=== PATIENT | female | born 1940 | race Caucasian/White ===

== ENCOUNTER 2025-04-01 11:21 | Outpatient (AMB) | payer MEDICARE, SELFPAY ==
--- NOTE | 2025-04-01 11:23 | A.PHYSOV_ITS ---
Vital Signs 04/01/25 11:27 Height 5 ft 3 in Weight 145 lb BMI 25.7 Pulse 80 Temp 97.6 F Intake Visit Reasons: Right Lumbar Transforaminal Epidural Inj L2 and L4 Intake Note: Patient is a 84 year male in office today for a Right L2 and L4 Transforaminal Epidural Injection. Tunnel Miner Required: No Allergies bee pollen (bees) Allergy (Unknown, Verified 04/01/25 11:24) Unknown [facility] Medical History (Updated 04/01/25 @ 11:41 by Nakul Thomas DO) Lumbar radiculitis Surgical History (Updated 04/01/25 @ 11:30 by Marycruz Oviedo MA) History of partial hysterectomy History of back surgery (Unknown) Social History (Updated 04/01/25 @ 11:27 by Marycruz Oviedo MA) Household Members Other:: Alcohol intake: current Alcohol intake frequency: does not drink Patient Tobacco Use Status: Former Tobacco user Use of substances other than those prescribed or required for medical reasons: No Current occupational status: retired Physical Exam Vital Signs: Last Vital Signs Temp 97.6 F 04/01/25 11:27 Pulse 80 04/01/25 11:27 BMI result Body Mass Index 25.7 Office Procedures Procedure Details: Procedure performed: Right L2 and L4 transforaminal epidural steroid injection Preop diagnosis: Lumbar radiculitis Postop diagnosis: The same Anesthesia: Local After informed consent was obtained, patient was placed on the procedure table in a prone position. Skin over lumbosacral area was prepped and draped in usual sterile manner. Right L2 pedicle was visualized utilizing fluoroscopy. 3.5 inch 22 gauge spinal needle was introduced percutaneously and advanced towards the pedicle at about 6 o'clock position. Once level of neural foramina was reached, needle placement was verified utilizing 3 cc of Omnipaque contrast solution. Excellent flow through the neural foramina and epidural spread was identified without evidence of vascular uptake. Total volume of 6 cc containing 2 cc of 1% lidocaine, 40 mg of triamcinolone and normal saline solution were injected after negative aspiration for blood and cerebrospinal fluid. Identical procedure was repeated at right L4 level. Radiation exposure was documented in the chart. Lumbar transforaminal Epidural Steroid Inj- use with FL Gd: 29801 - Single and 27242 - Each Additional Procedure code (CPT) selection complete Office Meds Kenalog 40 mg/mL suspension for injection Performing Provider: Nakul Thomas DO Performing Location: [facility] Administered by: Nakul Thomas DO on 04/01/25 11:43 Dose Route Admin Location Dispensed Lot Number Expiration Date [facility] [place] Special Education Teacher 80 mg epidural 2 mL [id number] [employer] Total Dispensed Waste 2 mL 0 % lidocaine (PF) 10 mg/mL (1 %) injection solution Performing Provider: Nakul Thomas DO Performing Location: [facility] Administered by: Nakul Thomas DO on 04/01/25 11:43 Dose Route Admin Location Dispensed Lot Number Expiration Date [facility] [place] Room Special Education Teacher 50 mg epidural 5 mL [id number] [employer] Total Dispensed Waste 5 mL 0 % Omnipaque 300 300 mg iodine/mL intravenous solution Performing Provider: Nakul Thomas DO Per[facility] Administered by: Nakul Thomas DO on 04/01/25 11:43 Dose Route Admin Location Dispensed Lot Number Expiration Date [facility] [place] Room Special Education Teacher 3 mL epidural 10 mL [id number] [facility] Total Dispensed Waste 10 mL 70 % Assessment & Plan Assessment & Plan (1) Lumbar radiculitis: Code(s): M54.16 - Radiculopathy, lumbar region Category: Medical Plan: Lumbar epidural injection was performed Plan Lumbar epidural injection was performed Orders: Orders AMB Lumbar transforaminal Epidural Steroid Injection Today M54.16 - Radiculopathy, lumbar region FL Gd Lumbar Transforaminal In Today M54.16 - Radiculopathy, lumbar region Coding Level of Care Code Procedure Only Diagnoses Lumbar radiculitis M54.16 CPT Codes Lumbar transforaminal Epidural Steroid I - CPT TRANSFORM: 38089 - Single ([id number]) Lumbar transforaminal Epidural Steroid I - CPT TRANSFORM: 62859 - Single ([id number])
[2025-04-01 11:27] VITALS: PULSE 80; TEMP 36.4; BMI 25.7
--- OUTSIDE RECORDS SUMMARY | 2025-04-01 12:12 | XMS_ITS | Clinical Summary ---
Author Organization [facility] Address [address] [place] [address] Care Team Providers Care Information Systems Security Manager Name Role Phone Nidia Mckeon MD Primary Care Provider [phone] Allergies No known active allergies Medications No known medications Active Problems No known active problems Social History Tobacco Use Types Packs/Day Years Used Date Smoking Tobacco: Former Cigarettes Smokeless Tobacco: Never Tobacco Cessation:Counseling Given: Not Answered Alcohol Use Standard Drinks/Week Comments Never 0 (1 standard drink = 0.6 oz pur e alcohol) Sex and Gender Information Value Date Recorded Sex Assigned at Female 11/30/2021 11:23 AM EDT Gender Identity Not on file Sexual Orientation Not on file Job Start Date Occupation Industry Not on file Not on file Not on file Last Filed Vital Signs Vital Sign Reading Time Taken Comments Blood Pressure 136/56 06/02/2023 1:04 PM EST Pulse 60 06/02/2023 1:04 PM EST Temperature 37 C (98.6 F) 06/02/2023 1:04 PM EST Respiratory Rate - - Oxygen Saturation 100% 06/02/2023 1:04 PM EST Inhaled Oxygen Concentration - - Weight 60.8 kg (134 lb) 06/02/2023 1:04 PM EST Height - - Body Mass Index - - Plan of Treatment Health Maintenance Due Date Last Done Comments Depression Screening 1953 Preventative Health Evaluation 09/20/1959 DTap / Tdap / Td (1 - Tdap) 1960 Fall Risk Assessment 2006 Osteoporosis Screening (DEXA Scan) 2006 RSV Adult > 60+ Yrs or (1 - 1-dose 75+ series) 2016 Pneumococcal Vaccine (2 of 2 - PPSV23 or PCV20) 02/19/2019 02/19/2018 COVID-19 Vaccine (4 - 2024-2 6 season) 2025 02/22/2021, 07/04/2020, 06/13/2020 Influenza Vaccine (#1) 2025 0, 01/22/2019, 02/17/2018 Shingrix-Zoster Vaccine Completed 04/12/20 19, 01/22/2019 Hepatitis B Vaccines Aged Out No long er eligible based on patient's age to complete this topic RSV Ped < 20 months Aged Out No longe r eligible based on patient's age to complete this topic Care Teams Information Systems Security Manager Relationship Specialty Start Date End Date Nidia Mckeon MD [address] [place] [address] PCP - General Internal Medicine 04/02/23
--- OUTSIDE RECORDS SUMMARY | 2025-04-01 12:13 | XMS_ITS | Encounter Summary ---
Author Organization [facility] Address [address] [place] [address] Care Team Providers Care Humanities Professor Name Role Phone Nidia Mckeon MD Primary Care Provider [phone] Encounter Details Date Type Department Care Team (Late st Contact Info) Description 02/09/2025 Results Follow-Up [facility] [address] [facility] [address] [place] [address] Sally Johnston NP [address] [place] [address] [place] [address] Social History Tobacco Use Types Packs/Day Years Used Date Smoking Tobacco: Former Smokeless Tobacco: Never Alcohol Use Standard Drinks/Week Comments Not Currently 0 (1 standard drink = 0.6 oz pur e alcohol) Housing Instability Answer Date Recorde d Are you worried that in the next 2 months you may not have stable housing? No 01/07/2025 Food Access & Nutrition Answer Date Rec orded Do you have access to a vari ety of food including fruits and vegetables? No 01/07/2025 Access to Healthcare Answer Date Record ed Within the last 3 months, ho w many times did you visit the emergency department for your medical care? 0 01/07/2025 Health Literacy Answer Date Recorded How often do you need to hav e someone help you when you read instructions, pamphlets, or other written material from your doctor or pharmacy? Never 01/07/2025 Caregiver: How often do you need to have someone help you when you read instructions, pamphlets, or other written material from your doctor or pharmacy? Not on file 01/07/2025 Financial Risk Answer Date Recorded How hard is it for you to pa y for the very basics like food, housing, medical care, and air conditioning / heating? Not very hard 01/07/2025 Transportation Answer Date Recorded Has the lack of transportati on kept you from meetings, work, or from getting things needed for daily living? Not on file 01/07/2025 Has the lack of transportati on kept you from medical appointments or from getting medications? No 01/07/2025 Social Isolation Answer Date Recorded How often do you feel lonely or isolated from th ose around you? Never 01/07/2025 Food Risk Answer Date Recorded Within the past 12 months we worried whether our food would run out before we got money to buy more. Never true 01/07/2025 Within the past 12 months th e food we bought just didn't last and we didn't have money to get more. Never true 01/07/2025 Dependent Care Answer Date Recorded Do you need help finding or paying for care for your loved ones. For example, children's minister or elderly care for an older adult? No 01/07/2025 Education Answer Date Recorded Do you think completing more education or training, like finishing a GED, going to college, or learning a trade, would be helpful for you? No 01/07/2025 Employment and Income Answer Date Recor ded During the last four weeks, have you been actively looking for work? No 01/07/2025 Living Situation Answer Date Recorded What is your living situation? Unrecognized valu e 01/07/2025 Interpersonal Safety Answer Date Record ed Physical Abuse Unrecognized value 09/13/2024 Verbal Abuse Unrecognized value 09/13/2024 Comments No Sex and Gender Information Value Date Recorded Sex Assigned at Female 08/20/2024 8:33 AM EDT Legal Sex Female 2:16 PM EST Gender Identity Female 08/20/2024 8:33 AM EDT Sexual Orientation Straight 08/20/2024 8: 33 AM EDT documented as of this encounter Plan of Treatment Upcoming Encounters Date Type Department Care Team (Late st Contact Info) Description 04/27/2025 8:15 AM EST Office Visit Pulmonology - [place] [address] [place] [phone] Rocio Morrell MD [address] [place] [phone] 07/12/2025 8:45 AM EST Office Visit Adult [address] [phone] Nidia Mckeon MD [address] [place], [place] 01/10/2026 10:00 AM EDT Office Visit Adult [address] [phone] Nidia Mckeon MD [address] [place], [place] 03/07/2026 8:30 AM EDT Office Visit Urogynecology [address] [phone] Manasa Hagan MD [address] [place] [address] documented as of this encounter Visit Diagnoses Not on filedocumented in this encounter Additional Health Concerns Assessment Noted Time PHQ-9 Depression Total Score: 0 01/08/20 25 2:03 PM EDT A fall risk assessment has been complete d for the patient 01/07/2025 2:01 PM EDT documented as of this encounter Care Teams Humanities Professor Relationship Specialty Start Date End Date Nidia Mckeon MD [address] [place] [address] PCP - General 04/02/23 documented as of this encounter
--- OUTSIDE RECORDS SUMMARY | 2025-04-01 12:13 | XMS_ITS | Patient Health Record ---
Author Organization [facility] Address [address] [place] [address] Care Team Providers Care Hospital Scientist Name Role Phone Juanpablo Horowitz Unavailable [phone] Reason For Referral No Information Social History Social History Drugs/Alcohol: Social Info Question Answer Notes Drugs Have you used drugs other than those for medical reasons in the past 12 months? No Do NOT USE Social Info Question Answer Notes Alcohol: Frequency: pt admits to dr greta castillo and stated she could finish a whole bottle and it varies as to how she drinks her wine sometimes more and somestimes less Smoking: Year(s) pt smokes a pac k a day and is sort of ready to quit Tobacco Use: Social Info Question Answer Notes Tobacco use other than smoking: Are you an other tobacco user? No Plan Of Treatment No Information
--- OUTSIDE RECORDS SUMMARY | 2025-04-01 12:13 | XMS_ITS | Continuity of Care Document ---
Author Organization [facility] [address] [place] [address] Phone [phone] Care Team Providers Care Flavor Room Worker Name Role Phone Nidia Mckeon MD Care Team Information Chief Meteorologist + [phone] Problems Active Problems Provider Date Essential hypertension Familia Hernandez Onset: 12/28/2021 Hypothyroidism Azul Nolasco M.D. Ons et: 12/28/2021 Osteoporosis Azul Nolasco M.D. Ons et: 12/28/2021 Degeneration of lumbar inter vertebral disc Azul Nolasco M.D. Onset: 12/28/2021 Osteoarthritis of bilateral hip joints Azul Nolasco M.D. Onset: 12/28/2021 Depressive disorder Azul Nolasco M.D. Onset: 11/06/2023 Lumbar radiculopathy David Hernandez Onset: 11/08/2023 History of deep vein thrombosis Azul Wills M.D. Onset: 11/08/2023 Bilateral sacral insufficien cy fracture Azul Nolasco M.D. Onset: 11/08/2023 Closed fracture of pelvis Azul Nolasco M.D. Onset: 11/08/2023 Social History Type Date Description Comments Sex Female Sex Unknown Lives With Alone ETOH Use Occasionally consumes alcoho l Tobacco Use Start: Unknown End: Unknown Patient is a former smoker Allergies and adverse reactions Active Allergies Criticality Reaction Severity Comments Date Honey Bee Venom Unable to assess criticality 03/30/2025 Inactive Allergies No Known Drug Allergies 0 12/28/2021 Medications Active Medications SIG Qnty Indications Order ing Provider Date Atorvastatin Prdlizi32fw Tablets Take 1 Tablet By Mouth Every Day Delio Miller M.D. Levothyroxine Zdzqab11tww Tablets Take 1 Tablet By Mouth Every Day Except Skip Saturdays 90tabs Azul Nolasco M.D. Mkgboifsiv76kt Capsules DR Take 1 Capsule By Mouth Every Day Delio Miller M.D. Multivitamin Adults 50+Adlt 50+ Tablets 1 by mouth every day Azul Nolasco M.D. Losartan Ecslmgxtb61xc Tablets 1 by mouth every day Unknown Wdhktnksc70ur Tablets ER 24HR 1 by mouth every day Unknown Sertraline XYZ32xg Tablets 1 by mouth every day Unknown Tupgpvkycq349nr Capsules 1 capsule 3 times daily Unknown Vitamin V442giq (2000 Ut) Capsules 1 by mouth every day Unknown Ufmovjzzv8cb Capsules 1 every night at bedtime Unknown Estradiol0.1mg/GM Cream 2 times weekly Unknown Anoro Cnzdhnw13.5-25mcg/Act Aerosol Inahle 1 puff By Mouth Once Daily Unknown Vital Signs Date Vital Result Comment 03/30/2025 8:03am BP Systolic 120 mmHg BP Diastolic 68 mmHg Heart Rate 65 /min Height 63 inches 5'3 Weight 145.12 lb BMI (Body Mass Index) 25.7 kg/m2 Results Test Acquired Date Facility Test Result H/L Range N ote TSH Rfx on Abnormal to Free T4 03/30/2025 [facility] TSH Rfx on Abnormal to Free T4 2.140 uIU/mL 0.450-4.5 00 TSH Rfx on Abnormal to Free T4 10/21/2024 [facility] TSH Rfx on Abnormal to Free T4 0.534 uIU/mL 0.450-4.5 00 Basic Metabolic Panel (8) 10/21/2024 [facility] Glucose 90 mg/dL 70-99 BUN 19 mg/dL 8-27 Creatinine 0.78 mg/dL 0.57-1.00 eGFR 75 mL/min/1.7 3 >59 BUN/Creatinine Ratio 24 12- Sodium 139 mmol/L 134-144 Potassium 4.9 mmol/L 3.5-5.2 Chloride 102 mmol/L 96-106 Carbon Dioxide, Total 19 mmol/L Low 20-29 Calcium 9.5 mg/dL 8.7-10.3 Albumin 10/21/2024 [facility] Albumin 4.5 g/dL 3.7-4.7 Vitamin D, 25-Hydroxy 10/21/2024 [facility] Vitamin D, 25-Hydroxy 48.4 ng/mL 30.0-100. 0 1 TSH+Free T4 10/21/2024 [facility] TSH 0.534 uIU/mL 0.450-4.5 00 T4,Free(Direct) 1.34 ng/dL 0.82- 1.77 Comp. Metabolic Panel (14) 10/21/2024 [facility] Glucose 91 mg/dL 70-99 BUN 20 mg/dL 8-27 Creatinine 0.80 mg/dL 0.57-1.00 eGFR 73 mL/min/1.7 3 >59 BUN/Creatinine Ratio 25 12- Sodium 139 mmol/L 134-144 Potassium 4.9 mmol/L 3.5-5.2 Chloride 103 mmol/L 96-106 Carbon Dioxide, Total 20 mmol/L 20-29 Calcium 9.9 mg/dL 8.7-10.3 Protein, Total 6.9 g/dL 6.0-8.5 Globulin, Total 2.1 g/dL 1.5-4.5 Bilirubin, Total 0.4 mg/dL 0.0-1 .2 Alkaline Phosphatase 81 IU/L 44-121 Ast (Sgot) 19 IU/L 0-40 Alt (SGPT) 10 IU/L 0-32 PTH, Intact 10/21/2024 [facility] PTH, Intact 55 pg/mL 15-65 TSH Rfx on Abnormal to Free T4 04/21/2024 [facility] TSH Rfx on Abnormal to Free T4 3.030 uIU/mL 0.450-4.5 00 Basic Metabolic Panel (8) 04/21/2024 [facility] Glucose 91 mg/dL 70-99 BUN 12 mg/dL 8-27 Creatinine 0.92 mg/dL 0.57-1.00 eGFR 62 mL/min/1.7 3 >59 BUN/Creatinine Ratio 13 12-28 Sodium 139 mmol/L 134-144 Potassium 4.5 mmol/L 3.5-5.2 Chloride 102 mmol/L 96-106 Carbon Dioxide, Total 23 mmol/L 20-29 Calcium 9.6 mg/dL 8.7-10.3 Comp. Metabolic Panel (14) 11/06/2023 [facility] Glucose 89 mg/dL 70-99 BUN 15 mg/dL 8-27 Creatinine 0.74 mg/dL 0.57-1.00 eGFR 81 mL/min/1.7 3 >59 BUN/Creatinine Ratio 20 12-28 Sodium 140 mmol/L 134-144 Potassium 4.0 mmol/L 3.5-5.2 Chloride 101 mmol/L 96-106 Carbon Dioxide, Total 23 mmol/L 20-29 Calcium 9.8 mg/dL 8.7-10.3 Protein, Total 6.3 g/dL 6.0-8.5 Albumin 4.3 g/dL 3.7-4.7 Globulin, Total 2.0 g/dL 1.5-4.5 Bilirubin, Total 0.5 mg/dL 0.0-1 .2 Alkaline Phosphatase 58 IU/L 44-121 Ast (Sgot) 19 IU/L 0-40 Alt (SGPT) 14 IU/L 0-32 TSH+Free T4 11/06/2023 [facility] TSH 0.155 uIU/mL Low 0.450-4.5 00 T4,Free(Direct) 1.69 ng/dL 0.82- 1.77 Vitamin D, 25-Hydroxy 11/06/2023 [facility] Vitamin D, 25-Hydroxy 48.1 ng/mL 30.0-100. 0 2 PTH, Intact 11/06/2023 [facility] PTH, Intact 35 pg/mL 15-65 TSH With Reflex To FT4 09/26/2022 [facility] TSH With Reflex To FT4 1.73 uIU/mL (0.4-4.2) TSH With Reflex To FT4 12/28/2021 [facility] TSH With Reflex To FT4 1.18 uIU/mL (0.4-4.2) 1 Vitamin D deficiency has been defined by the [place] of [employer] and an Endocrine Society practice guideline as a level of serum 25-OH vitamin D less than 20 ng/mL (1,2). The Endocrine Society went on to further define vitamin D insufficiency as a level between 21 and 29 ng/mL (2). 1. IOM ([place] of [employer]). 2010. Dietary reference intakes for calcium and D. [place]: The National Academies Press. 2. Chong Gray, Caio BASSETT, et al. Evaluation, treatment, and prevention of vitamin D deficiency: an Endocrine Society clinical practice guideline. JCEM. 2010; 96(7):1911-30. 2 Vitamin D deficiency has been defined by the [place] of [employer] and an Endocrine Society practice guideline as a level of serum 25-OH vitamin D less than 20 ng/mL (1,2). The Endocrine Society went on to further define vitamin D insufficiency as a level between 21 and 29 ng/mL (2). 1. IOM ([place] of [employer]). 2010. Dietary reference intakes for calcium and D. [place]: The National Academies Press. 2. Chong Gray, Caio BASSETT, et al. Evaluation, treatment, and prevention of vitamin D deficiency: an Endocrine Society clinical practice guideline. JCEM. 2010; 96(7):1911-30. Procedures Date Code Description Status 04/21/2024 09579 Collection Of Venous Blood B y Venipuncture Completed 09/26/2022 39660 Collection Of Venous Blood B y Venipuncture Completed 12/28/2021 96680 Collection Of Venous Blood B y Venipuncture Completed Medical Devices Description No Information Available Encounters Type Date Location Provider Dx Diagnosis Office Visit 03/30/2025 8:15a Main Office Azul Nolasco M.D. M81.0 Age-related osteoporosis w/o current pathological fracture Z87.310 Personal history of (healed) osteoporosis fracture E03.9 Hypothyroidism, unsp ecified Assessments Date Code Description Provider 03/30/2025 M81.0 Age-related oste oporosis without current pathological fracture Azul Nolasco M.D. 03/30/2025 Z87.310 Personal history of (healed) osteoporosis fracture Azul Nolasco M.D. 03/30/2025 E03.9 Hypothyroidism, unspecified Azul Nolasco M.D. Plan of Treatment Future Appointment(s):* 09/07/2025 8:45 am - Azul Nolasco M.D. at Main Office 03/30/2025 - Azul Nolasco M.D.* M81.0 Age-related osteoporosis without current pathological fracture * Z87.310 Personal history of (healed) osteoporosis fracture * E03.9 Hypothyroidism, unspecified Functional Status Description No Information Available Mental Status Description No Information Available Referrals Description No Information Available
--- OUTSIDE RECORDS SUMMARY | 2025-04-01 12:13 | XMS_ITS | Encounter Summary ---
Author Organization [facility] Address [address] [place] [address] Care Team Providers Care Grinding Room Supervisor Name Role Phone Nidia Mckeon MD Primary Care Provider [phone] Encounter Details Date Type Department Care Team ([facility] st Contact Info) Description 02/15/2025 Results Follow-Up Adult Medicine [facility] [place] [address] [place] [phone] Nidia Mckeon MD [address] [place] [address] Social History Tobacco Use Types Packs/Day Years [...] care for your loved ones. For example, child and family services specialist or elderly care for an older adult? [...] 04/27/2025 8:15 AM EST Office Visit Pulmonology [facility] [address] [place] [address] Rocio Morrell MD [address] [place] [phone] 07/12/2025 8:45 AM EST Office Visit [address] [phone] Nidia Mckeon MD [address] [place], [place] 01/10/2026 10:00 AM EDT Office Visit [address] [phone] Nidia Mcekon MD [address] [place], [place] 03/07/2026 8:30 AM EDT Office Visit Urogynecology [address] [phone] Manasa Hagan MD [address] [place] [address] documented as of this encounter Visit Diagnoses Not on filedocumented in this encounter Additional Health Concerns Assessment Noted Time PHQ-9 Depression Total Score: 0 01/08/20 25 2:03 PM EDT A fall risk assessment has been complete d for the patient 01/07/2025 2:01 PM EDT documented as of this encounter Care Teams Grinding Room Supervisor Relationship Specialty Start Date End Date Nidia Mckeon MD [address] [place] [address] PCP - General 04/02/23 documented as of this encounter
--- OUTSIDE RECORDS SUMMARY | 2025-04-01 12:13 | XMS_ITS | Encounter Summary ---
Author Organization [facility] Address [address] [place] [address] Care Team Providers Care Machine Loader Name Role Phone Nidia Mckeon MD Primary Care Provider [phone] Reason for Referral * Consultation (Routine) - Closed Specialty Diagnoses / Procedures Referred By Charles rivas Referred To Contact Urology Diagnoses Abnormal ultrasound of kidney Nidia Mckeon MD [address] [place] [address] Phone: tel: [facility]: [facility] [address] [address] Phone: tel: fax: Referral ID Status Reason Start Date Expiration Date V isits Requested Visits Authorized [id number] Closed Specialty Services Required 03/11/2025 03/11/2026 1 1 Encounter Details Date Type Department Care Team (Late st Contact Info) Description 03/11/2025 Results Follow-Up Adult Medicine [address] [phone] Nidia Mckeon MD [address] [place], [place] Social History Tobacco Use Types Packs/Day Years [...] for your loved ones. For example, children's zoo caretaker or elderly care for an older adult? [...] 8:15 AM EST Office Visit Pulmonology - [address] [place] [phone] Rocio Morrell MD [address] [place] [phone] 07/12/2025 8:45 AM EST Office Visit Adult [address] [phone] Nidia Mckeon MD [address] [place] [address] 01/10/2026 10:00 AM EDT Office Visit Adult [address] [phone] Nidia Mckeon MD [address] [place], [place] 03/07/2026 8:30 AM EDT Office Visit Urogynecology [address] [phone] Manasa Hagan MD [address] [place] [address] Scheduled Referrals Name Type Priority Associated Diagnoses Order Schedule Ambulatory referral to Urology Outpatient Referral Routine Abnormal ultrasound of kidney 1 Occurrences starting 03/11/2025 until 03/11/2026 documented as of this encounter Visit Diagnoses Diagnosis Abnormal ultrasound of kidney- Primary documented in this encounter Additional Health Concerns Assessment Noted Time PHQ-9 Depression Total Score: 0 01/08/20 25 2:03 PM EDT A fall risk assessment has been complete d for the patient 01/07/2025 2:01 PM EDT documented as of this encounter Care Teams Machine Loader Relationship Specialty Start Date End Date Nidia Mckeon MD [address] [place] [address] PCP - General 04/02/23 documented as of this encounter
--- OUTSIDE RECORDS SUMMARY | 2025-04-01 12:13 | XMS_ITS | Clinical Summary ---
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 4 Active estradioL (ESTRACE) 0.01 % (0.1 mg/gram) vaginal cream Please use 0.5g (a pea-sized amount) on your finger and place inside the vagina for 2 weeks at night, and then decrease to twice a week at night (Mondays and ) 4 Active acetaminophen (TylenoL) 325 mg tablet Take 2 tablets (650 mg total) by mouth. 3 Active sertraline (ZOLOFT) 25 mg tablet Take 1 tablet (25 mg total) by mouth 1 (one) time each day. 90 tablet 1 5 Active losartan (Cozaar) 50 mg tabletIndications: Essential (primary) hypertension Take 1 tablet (50 mg total) by mouth 1 (one) time each day. 30 each 11 5 026 Active umeclidinium-vilan teroL (Anoro Ellipta) 62.5-25 mcg/actuation inhalerIndications :Chronic obstructive pulmonary disease, unspecified COPD type (CMS/HCC V24, CMS/HCC V28) Inhale 1 puff by mouth 1 (one) time each day. 1 each 5 026 Active cholecalciferol (VITAMIN D-3) 50 mcg (2,000 unit) capsule Take 1 capsule (2,000 Units total) by mouth 1 (one) time each day. 90 capsule 1 5 Active meloxicam (MOBIC) 7.5 mg tablet Take 1 tablet (7.5 mg total) by mouth 2 (two) times a day if needed for moderate pain (WITH MEALS). 60 each 1 5 Active EPINEPHrine (EpiPen 2-Beka) 0.3 mg/0.3 mL injection Inject 0.3 mL (0.3 mg total) into the thigh if needed for anaphylaxis. 2 each 2 5 Active gabapentin (NEURONTIN) 100 mg capsule Take 1 capsule (100 mg total) by mouth 2 (two) times a day. Active atorvastatin (LIPITOR) 20 mg tablet TAKE 1 TABLET BY MOUTH DAILY 90 tablet 1 5 Active omeprazole (PriLOSEC) [address] capsule Take 1 capsule (20 mg total) by mouth 1 (one) time each day. Do not crush or chew. 90 capsule 1 5 Active metroNIDAZOLE (METROCREAM) 0.75 % cream APPLY TOPICALLY TO FACE TWICE DAILY 5 Active diclofenac (VOLTAREN) 1 % topical gel Apply 2 g topically 2 (two) times a day. 60 g 1 5 Active lidocaine (LIDODERM) 5 % patchIndications:O steoarthritis of lumbar spine, unspecified spinal osteoarthritis complication status,Chronic low back pain, unspecified back pain laterality, unspecified whether sciatica present,Chronic knee pain, unspecified laterality Apply 1 patch topically 1 (one) time each day if needed for moderate pain or severe pain. Apply to painful area 12 hours per day, remove for 12 hours. 30 each 2 5 Active traMADoL (ULTRAM) 50 mg tabletIndications: Pain Take 1 tablet (50 mg total) by mouth 1 (one) time each day if needed for severe pain. Max Daily Amount: 50 mg 28 tablet 5 Active melatonin 3 mg tablet TAKE 1 TABLET BY MOUTH DAILY AT BEDTIME NEEDED FOR INSOMNIA 90 tablet 1 5 Active Myrbetriq 50 mg 24 hr tablet Take 1 tablet (50 mg total) by mouth 1 (one) time each day. 90 tablet 3 5 Active cyclobenzaprine (FLEXERIL) 5 mg tabletIndications: Chronic right hip pain,Chronic right-sided low back pain without sciatica Take 1 tablet (5 mg total) by mouth at bedtime as needed for muscle spasms. 30 tablet 5 025 Active Problems Problem Noted Date Diagnosed Date Abnormal kidney function 02/16/2025 Diverticulosis 01/07/2025 Chronic obstructive pulmonar y disease (CMS/HCC V24, CMS/HCC V28) 01/07/2025 Spinal stenosis, lumbar region with neurogenic c laudication 07/20/2024 Assessment & Plan (02/05/2025 9:58 PM EDT): Pt is s/p right sided L5-S1 minimally invasive decompression 09/13/24. Her severe right leg pain improved after the surgery, now she will occasionally get pain in the right medial thigh. Her main complaint is extreme back pain, worse with standing and walking. She denies left leg pain or symptoms. She is ok when sitting. She notes she has to take breaks frequently when walking secondary to the severe back pain. She leans on a shopping cart at the grocery store. No B/B incontinence or saddle anesthesia. She rates her avg pain 6/10, and with walking 7-8/10. Dr. Mckeon PCP rx Medrol Dosepack but she does not feel it helped at all. He rx Ultram. Her L/S MRI 01/25/25 [facility] shows significant multilevel degenerative changes, scoliosis, including L2-3 left paracentral disc herniation, prominent posterior epidural lipomatosis together causing moderate-severe stenosis and L4- 5 severe stenosis from combination of DJD, epidural lipomatosis. Postop changes right L5-S1. Paraspinous muscle atrophy also noted. I reviewed MRI images with pt on the computer in detail, as well as explaining MRI report to pt. Dr. Barton reviewed MRI while pt was in the office. Ms. Talley has L2-3, L4-5 stenosis and is describing lumbar stenosis claudication symptoms. We had long discussion about her stenosis sxs and significant lumbar degenerative changes, scoliosis, that can contribute as well to some back pain. She had questions regarding her previous surgery and why it did not correct her current back pain, I explained the right L5-S1 decompression was meant to help her severe right leg pain that she was experiencing at the time, which is better now. She currently describes LBP with walking, no problems with sitting, so Dr. Barton states she can offer L2-3, L4-5 decompression to see if that can help the stenosis symptoms with walking. Patient is aware surgery may not correct all her current back pain. She will let us know if she would like to proceed with surgery, we discussed the surgery, risks and benefits in detail (including but not limited to need for general anesthesia, risk of WA, nerve root damage or spinal fluid leak, infection, hematoma, no improvement in symptoms) postop recovery and restrictions, Hibiclens and instructions given to pt. She is aware she would need to stop the Mobic 1 week prior to surgery. Right now, she is getting a cardiac workup, we can see what the results show. She plans to discuss possible surgery plans with Dr. Mckeon at her upcoming appt. She would need medical clearance preop if she decides to go ahead with surgery. 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 Talley is approximately 10 days status post right L5-S1 minimally invasive decompression. Since the surgery she has had significant improvement in her right leg. She complains of back pain that she is not sure if she had before the surgery or if it is surgical in nature. Overall she is pleased with her early postoperative results. I gave her prescription for physical therapy. I told her that if she would like to come back in for another follow-up she was welcome to do so. She will call if she would like to come back and after therapy. Assessment & Plan (07/20/2024 11:11 AM EDT): I reviewed the MRI findings in detail with Ms. Talley noting the persistent severe right L5-S1 facet arthropathy causing lateral recess and foraminal stenosis with probable compression of the right L5 nerve root. She has not responded to physical therapy or injections. I am going to assume that her transverse low back and deep right buttock pain are from this facet disease and L5 root compression. She does not have L5 distribution symptoms down her leg but this could contribute to deep gluteal pain. There is no clear finding for the medial thigh pain which fits an L3 distribution. There are certainly disc herniations at L3 but these are on the left. We discussed the details, risks, benefits and anticipated postoperative course of a right L5-S1 minimally invasive decompression. All questions were answered, she is going to discuss this with her family and let us know if she wishes to proceed. Dyspnea on exertion 07/08/2024 Prediabetes 04/02/2024 Bruise 04/02/2024 Gait instability 12/02/2023 Multiple closed pelvic fract ures with disruption of pelvic alatna (CMS/HCC V24, CMS/HCC V28) 12/02/2023 Trochanteric bursitis of right hip 12/02/2023 Scoliosis of thoracolumbar spine 12/02/2023 Primary osteoarthritis of right knee 12/02/2023 Fatigue 2023 Neutrophilia 2023 Hordeolum externum 2023 Insomnia 2023 Elevated blood pressure reading 08/26/2023 Excessive sweating 08/26/2023 Chronic right hip pain 07/08/2023 Overview (02/20/2024): Last Assessment & Plan: Patient is s/p left L3-4 MIS discectomy on 11/26/2021 and right L5-S1 minimally invasive microdiscectomy 02/13/2023 and did well after surgery. She describes 3 to 4 weeks of right hip pain, no particular inciting event. She does have history of a fall with right pelvic and sacral fracture, was seen at [facility]. She is currently in physical therapy at [facility], had 4 visits so far for her right hip pain. Sadly she lost her of 57 years on 04/23/2023, but feels she is doing well and staying somewhat active, is ambulating with a cane. She has a good support system with her 3 sons/[id number]'s and grandson. Ms. Talley had pelvic x-rays ordered in April, unfortunately that was when her passed and she did not get the x-rays done. I will have her go to the first floor for her x-rays, hopefully she will see improvement with physical therapy, we also discussed trying cortisone injections for her right SI joint and lateral hip pain (? Bursitis). She would like to go to Dr. Thomas/physiatry for the injection, I placed referral for evaluation. If she has any significant findings on her hip x-ray, she would like to be referred to orthopedics at [place]. I will call her with results once available. If no significant findings on x-ray, we may order MRI of lumbar spine to rule out nerve root compression. She will call with any concerns or questions. Interstitial lung disease ([facility] V24, [facility] V28) 06/27/2023 Overview (02/20/2024): Last Assessment & Plan: CT scan shows no progression of any interstitial disease or cystic disease of the lungs and pulmonary nodule that is 3 mm has not progressed either. 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 She does not have any symptoms of shortness of breath that are worsening or significant at all. Given the size of the nodule, and the lack of symptoms, and the stability of the picture on the CT scan I do not think she needs follow-up with imaging or with me. All questions were answered. Pulmonary nodule 06/27/2023 Overview (02/20/2024): Last Assessment & Plan: Are no concerning pulmonary nodules on her most recent CT scan from January 2023 but there were some nodules previously on CT scans dating back to 2015. Repeat CT scan should send some lightheadedness. Depression 04/23/2023 Deep venous thrombosis ([facility] V24, [facility] V28 ) 02/28/2023 Closed fracture of sacrum with routine healing 1 Cyst of right kidney 02/28/2023 Elevated alkaline phosphatase level 02/28/2023 Anemia 02/28/2023 Open fracture of pubis with routine healing 02/10 Arthritis 02/26/2023 Disorder of sacroiliac joint 02/26/2023 Chest pain 05/20/2022 Overview (02/20/2024): Last Assessment & Plan: The patient's chest pain has resolved with unremarkable stress echo to a reasonable MET workload given her age. Continue to monitor. HLD (hyperlipidemia) 05/20/2022 Overview (02/20/2024): Last Assessment & Plan: Well controlled lipid profile on current dose statin. Continue Assessment & Plan (10/21/2024 9:39 AM EDT): Fasting lipid profile from a year ago revealed an LDL of 84. Patient's PCP has placed orders for updated lipid panel which she will have done next week. At this time she will continue on her current dose of Lipitor 20 mg to be mindful of her dietary fat intake. Essential (primary) hypertension 05/20/2022 Overview (02/20/2024): Last Assessment & Plan: The patient's blood pressure is well controlled on no antihypertensive at this time. Continue to monitor Assessment & Plan (10/21/2024 9:39 AM EDT): Elevated during today's exam with a reading of 150/70. Previous office visits also revealed elevation in her blood pressure. Subsequently we will increase her losartan to 50 mg. BMP in 1 week. Educated on the importance of diet lifestyle to help further assist in reducing blood pressure. The patient was encouraged to follow low-salt low-fat diet, make purposeful strides towards weight loss, and engage in routine aerobic exercise as tolerated. Orders: losartan (Cozaar) 50 mg tablet; Take 1 tablet (50 mg total) by mouth 1 (one) time each day. Basic metabolic panel; Future Degeneration of lumbar intervertebral disc 12/28 Hypothyroidism 12/28/2021 Osteoarthritis of both hips 12/28/2021 Osteoporosis 12/28/2021 Knee pain 11/30/2021 Lumbar disc herniation with radiculopathy 2021 Overview (02/20/2024): Last Assessment & Plan: Ms. Talley is about 2 weeks s/p right L5-S1 minimally invasive microdiscectomy. Since the surgery she has had complete relief from her right leg pain. For the past several days she has lad distal left lower extremity pain. She is not able to describe a dermatomal pattern. I reassured her and explained that contralateral leg pain was not unusual after surgery. She asked appropriate questions and appeared to understand. She is scheduled to start home therapy later this week. She can f/u with us on an as needed basis. Assessment & Plan (04/06/2024 5:21 PM EST): I discussed the updates in detail with Ms. Talley and she has not had an overwhelming response to either treatment of the SI joint or right piriformis syndrome. She is a bit disheartened but only has severe pain on few brief occasions. She is mostly concerned because this pain is worse when attempting to walk outside on the sidewalk or road. At this point, I recommended that she continue her home exercise program and look for school and her neighborhood with a tract that she can walk on instead. I still would not recommend lumbar spine surgery. Encounters Date Type Department Care Team Description 03/23/2025 Telephone [facility] - [facility] [address] [facility] [address] [place] [address] Antonio Dumont MA 03/11/2025 Results Follow-Up Adult Medicine [place] - [address] [phone] Nidia Mckeon MD 03/03/2025 9:00 AM EDT - 03/03/2025 11:59 PM EDT Hospital Encounter Radiology Department - [address] [phone] Abnormal kidney function Discharge Disposition: Home or Self Care 03/01/2025 8:30 AM EDT Office Visit Urogynecology [address] [phone] Manasa Hagan MD Nocturia (Primary Dx); Recurrent UTI; Urinary frequency; Urinary urgency; Genitourinary syndrome of menopause; History of midurethral sling procedure; Prolapse of anterior vaginal wall 02/16/2025 7:30 AM EDT Office Visit Adult [address] [phone] Nidia Mckeon MD Osteoarthritis of lumbar spine, unspecified spinal osteoarthritis complication status (Primary Dx); Chronic low back pain, unspecified back pain laterality, unspecified whether sciatica present; Abnormal kidney function; Prediabetes; Chronic knee pain, unspecified laterality; Need for prophylactic vaccination and inoculation against influenza; Essential (primary) hypertension; Pain 02/15/2025 Results Follow-Up Adult [address] [phone] Nidia Mckeon MD 02/09/2025 Results Follow-Up [facility] - [facility] [address] [facility] [address] [place] [phone] Sally Johnston NP 02/07/2025 Telephone Adult [address] [phone] Nidia Mckeon MD 02/04/2025 10:30 AM EDT Office Visit Neurosurgery [facility] 175 [facility] 300 [place] [phone] Debra Dent PA Spinal stenosis, lumbar region with neurogenic claudication (Primary Dx) 01/28/2025 Telephone Adult Medicine [address] [phone] Sherri Perez MA 01/27/2025 Telephone Adult Medicine [address] [phone] Nidia Mckeon MD 01/24/2025 1:44 PM EDT - 01/24/2025 11:59 PM EDT Hospital Encounter Radiology Department - [address] [phone] Chronic low back pain, unspecified back pain laterality, unspecified whether sciatica present Discharge Disposition: Home or Self Care 01/18/2025 Telephone [facility] - [facility] [address] [facility] [address] [place] [phone] Sally Johnston NP 01/14/2025 Telephone Neurosurgery [facility] [address] [facility] [address] [place] [phone] Michelle James MA 01/13/2025 6:57 PM EDT - 01/13/2025 8:[address] [facility] [address] [place] [phone] Neal Alejandro MD Chest pain, unspecified type (Primary Dx) Discharge Disposition: Home or Self Care 01/13/2025 1:00 PM EDT Office Visit Adult Medicine [address] [phone] Nidia Mckeon MD Screening for osteoporosis (Primary Dx); Postmenopausal; Chronic right hip pain; Chronic right-sided low back pain without sciatica 01/13/2025 Telephone [facility] - [facility] [address] [facility] [address] [place] [phone] Marv Rodas MD 01/13/2025 Telephone Adult Medicine [address] [phone] Nidia Mckeon MD 01/11/2025 8:06 AM EDT - 01/11/2025 11:59 PM EDT Hospital Encounter XRAY [address] [phone] Chronic low back pain, unspecified back pain laterality, unspecified whether sciatica present Discharge Disposition: Home or Self Care 01/07/2025 2:00 PM EDT Office Visit Adult Medicine [address] [phone] Nidia Mckeon MD Routine general medical examination at a health care facility (Primary Dx); Chronic low back pain, unspecified back pain laterality, unspecified whether sciatica present; Osteoporosis, unspecified osteoporosis type, unspecified pathological fracture presence; Diverticulosis; Hypothyroidism, unspecified type; Essential (primary) hypertension; Chronic obstructive pulmonary disease, unspecified COPD type ([facility] V24, [facility] V28) from Last 3 Months Immunizations Immunization Administration Dates Next Due Influenza trivalent, 0.5mL ( Fluad) 65yo and older 02/16/2025,04/02/2024 Influenza trivalent, 0.5mL ( Fluzone High-dose) 65yo and older 03/10/2023,02/04/2020,01/22/2019,2017 Influenza, Unspecified 02/09/2022 Pneumococcal conjugate 13 va lent (Prevnar 13, PCV13) 2mo and older 02/19/2018 Pneumococcal conjugate 20 va lent (Prevnar 20, PCV 20) 2mo and older 01/01/2024 SARS-COV-2 (COVID-19) Vaccin e, Unspecified 05/29/2022 Td, Unspecified 01/01/2024 Zoster Live 01/19/2013 Zoster recombinant (Shingrix ) 19yo and older 04/12/2019,01/22/2019 Surgical History Surgery Date Site/Laterality Comments HYSTERECTOMY USLS, A/P repair BACK SURGERY back surgery in 2003, Dr. Barrera BACK SURGERY 11/26/2021 Left Left L3-4 MIS discectomy, Dr. Barton OTHER SURGICAL HISTORY SLING OPERATION STRESS INCONTINENCE; retropubic BACK SURGERY 02/13/2023 right L5-S1 MIS discectomy, Dr Barton COLONOSCOPY BACK SURGERY 09/13/2024 right L5-S1 MIS decompression, Dr. Barton Medical History Medical History Date Comments Essential hypertension Hyperthyroidism IFG (impaired fasting glucose) 09/20/2021 Age-related osteoporosis without current patholo gical fracture 07/15/2019 Dorsalgia, unspecified GERD with esophagitis Insomnia, unspecified Other psoriasis Other specified hypothyroidism Mixed hyperlipidemia Osteoporosis Deep venous thrombosis ([facility] V24, [facility] V28 ) 02/28/2023 Open fracture of pubis with routine healing 02/10 Closed fracture of sacrum with routine healing 1 COPD (chronic obstructive pu lmonary disease) ([facility] V24, [facility] V28) Depression Anxiety Family History Medical History Relation Name Comments Colon cancer Father Diabetes Mother Hypertension Mother Stroke Mother Other cancer Sister skin Stroke Sister Other: Kidney Disease Son Breast cancer Neg Hx Relation Name Status Comments Father Mother Sister Son Social History Tobacco Use Types Packs/Day Years Used Date Smoking Tobacco: Former Smokeless Tobacco: Never Tobacco Cessation:Counseling Given: Not Answered Alcohol Use Standard Drinks/Week Comments Not Currently [...] Record ed Within the last 3 months, lori lou many times did you visit the emergency [...] care for your loved ones. For example, early childhood aide classroom or elderly care for an older adult? [...] Orientation Straight 08/20/2024 8: 33 AM EDT Obstetrics History Last Filed Vital Signs Vital Sign Reading Time Taken Comments Blood Pressure 148/67 03/01/2025 8:37 AM EDT Pulse 61 03/01/2025 8:37 AM EDT Temperature 36.3 C (97.4 F) 02/16/2025 7:45 AM EDT Respiratory Rate 12 02/16/2025 7:45 AM EDT Oxygen Saturation 93% 01/13/2025 5:47 PM EDT Inhaled Oxygen Concentration - - Weight 65.8 kg (145 lb) 03/01/2025 8:37 AM EDT Height 160 cm (5' 3 ) 02/16/2025 7:45 AM EDT Body Mass Index 25.69 02/16/2025 7:45 AM EDT Plan of Treatment Upcoming Encounters Date Type Department Care Team (Late st Contact Info) Description 04/27/2025 8:15 AM EST Office Visit Pulmonology - [address] [place] [address] Rocio Morrell MD [address] [place] [phone] 07/12/2025 8:45 AM EST Office Visit Adult [address] [phone] N[facility]keon MD [address] [facility] [place] 01/10/2026 10:00 AM EDT Office Visit Adult [address] [phone] Nidia Mckeon MD [address] [place], [place] 03/07/2026 8:30 AM EDT Office Visit Urogynecology - [address] [phone] Manasa Hagan MD [address] [facility] [address] [place] [address] Health Maintenance Due Date Last Done Comments COVID-19 Vaccine ( season) 2025 05/29/2022, 02/22/2021, 07/04/2020, Additional history exists RSV Immunization Adult Patients (1 - 1-dose 75+ series) 05/12/2025 Postponed from 2016 (Patient Refused) Falls Risk Assessment 01/07/2026 01/07/2025, 025 Medicare Annual Wellness Visit 01/07/2026 01/07/2025 Social Influencers of Health Screening 01/07/2026 01/07/2025 Hypertension/CHF/CAD Annual BMP Blood Test 02/07/2026 02/07/2025, 01/13/2025, 10/26/2024, Additional history exists Cholesterol Screening (Lipid Panel) 10/26/2029 10/26/2024, 08/26/2023 Osteoporosis Screening (Bone Density Screening) 11/27/2033 11/28/2023, 04/13/2021, 03/30/2019 DTaP,Tdap,and Td Vaccines (2 - Td or Tdap) 12/31/2033 01/01/2024 Zoster Vaccines Completed 04/12/2019, 01/10, 01/19/2013 Pneumococcal Vaccine: 50+ Years Completed 01/01/2024, 02/19/2018 Depression Screening Completed 01/07/2025, 10/24/19 24 Influenza Vaccine Completed 02/16/2025, , 03/10/2023, Additional history exists HIB Vaccines Aged Out No longer eligi ble based on patient's age to complete this topic HPV Vaccines Aged Out No longer eligi ble based on patient's age to complete this topic Hepatitis A Vaccines Aged Out No long er eligible based on patient's age to complete this topic Hepatitis B Vaccines Aged Out No long er eligible based on patient's age to complete this topic IPV Vaccines Aged Out No longer eligi ble based on patient's age to complete this topic MMR Vaccines Aged Out No longer eligi ble based on patient's age to complete this topic Meningococcal ACWY Vaccine Aged Out N o longer eligible based on patient's age to complete this topic Meningococcal B Vaccine Aged Out No l onger eligible based on patient's age to complete this topic RSV Immunization Patients Under 20 months Aged Out No longer eligible based on patient's age to complete this topic Varicella Vaccines Aged Out No longer eligible based on patient's age to complete this topic Medical Devices Implanted Type Area [employer]od[employer] Advisor Device Identifier Shelf Expiration Date Model / Serial / Lot Powder Surgifoam Absorb Gel - Sna - [id number] Implanted:Qty: 1 on 09/13/2024 by Linda Barton MD at [facility] [employer] Right: Spine Lumbar [employer] 07/06/2026 1978 / NA / [id number] Description:MIXED WITH 10,00 0 UNITS OF THROMBIN Procedures Procedure Name Priority Date/Time Associated Diagnosis Comments US RETROPERITONEAL COMPLETE Routine 03/03/2025 9:47 AM EDT Abnormal kidney function EXTERNAL CARDIAC MRI Routine 03/02/2025 10:13 AM EDT HEMOGLOBIN A1C Routine 02/07/2025 12:11 PM EDT Prediabetes BASIC METABOLIC PANEL Routine 02/07/2025 12:11 PM EDT Chest heaviness SOB (shortness of breath) MR LUMBAR SPINE WO CONTRAST Routine 01/24/2025 3:07 PM EDT Chronic low back pain, unspecified back pain laterality, unspecified whether sciatica present ECG ANNOTATED 01/14/2025 XR CHEST 2 VIEWS STAT 01/13/2025 7:18 PM EDT CBC WITH AUTO DIFFERENTIAL STAT 01/13/2025 5:53 PM EDT B-TYPE NATRIURETIC PEPTIDE STAT 01/13/2025 5:53 PM EDT MAGNESIUM STAT 01/13/2025 5:53 PM EDT LIPASE STAT 01/13/2025 5:53 PM EDT COMPREHENSIVE METABOLIC PANEL STAT 01/13/2025 5:53 PM EDT CBC AND DIFFERENTIAL STAT 01/13/2025 5:53 PM EDT TROPONIN I HIGH SENSITIVITY Timed 01/13/2025 5:53 PM EDT ECG 12-LEAD STAT 01/13/2025 5:43 PM EDT ECG 12-LEAD STAT 01/13/2025 5:39 PM EDT CBC WITH AUTO DIFFERENTIAL Routine 01/11/2025 8:27 AM EDT Routine general medical examination at a health care facility HEPATIC FUNCTION PANEL Routine 8:27 AM EDT Routine general medical examination at a health care facility HEMOGLOBIN A1C Routine 01/11/2025 8:27 AM EDT Routine general medical examination at a health care facility THYROID STIMULATING HORMONE WITH REFLEX TO FREE T4 AND FREE T3 Routine 01/11/2025 8:27 AM EDT Routine general medical examination at a health care facility CBC AND DIFFERENTIAL Routine 01/11/2025 8:27 AM EDT Routine general medical examination at a health care facility XR LUMBAR SPINE 4+ VIEWS Routine 01/11/2025 8:16 AM EDT Chronic low back pain, unspecified back pain laterality, unspecified whether sciatica present LIPID PANEL WITH REFLEX TO DIRECT LDL Routine 10/26/2024 8:57 AM EDT Hyperlipidemia, unspecified hyperlipidemia type WATSON DEXA AXIAL SKELETON Routine 11/28/2023 9:00 AM EDT Other specified disorders of bone density and structure, left thigh HM DEPRESSION SCREENING Routine 10/24/2023 from Last 3 Months or Most Recently Relevant to Health Maintenance Results * US Retroperitoneal Complete (03/03/2025 9:47 AM EDT) Anatomical Region Laterality Modality Body Ultrasound 03/03/2025 5:57 PM EDT Narrative 03/03/2025 6:01 PM EDT Retroperitoneal ultrasound. History abnormal kidney function. Comparison with some prior ultrasound from 12/16/2023. Study is limited due to patient's body habitus. There is a tiny exophytic hypoechoic lesion in the midpole of the right kidney measuring approximately 6 mm, stable. No new focal abnormalities were identified in the kidneys. Right kidney measures 9.5 cm in long axis. Left kidney measures 10.2 cm in long axis. No evidence of urolithiasis solid masses or hydronephrosis on each side. Urinary bladder was visualized with a volume of 234 cc. Postvoid volume is 63 cc. There are bilateral ureteral jets. Previously noted mass on the posterior wall of the urinary bladder is not visualized on today's examination. CONCLUSIONS: Stable exophytic hypoechoic lesion in the midpole of the right kidney. Postvoid volume of the bladder 63 cc. No new focal abnormalities identified. -------- FINAL REPORT -------- Dictated By: Krystal Hyde Dictated Date: 03/03/2025 17:57 ET Assigned Physician: Krystal Hyde Reviewed and Electronically Signed By: Krystal Hyde Signed Date: 03/03/2025 18:01 ET Workstation ID: [id number] Transcribed By: Self Edit Transcribed Date: 03/03/2025 17:57 ET Procedure Note Krystal Hyde MD - 03/03/2025 Retroperitoneal ultrasound. History abnormal kidney function. Comparison with some prior ultrasound from 12/16/2023. Study is limited due to patient's body habitus. There is a tiny exophytic hypoechoic lesion in the midpole of the rightkidney measuring approximately 6 mm, stable. No new focal abnormalitieswere identified in the kidneys. Right kidney measures 9.5 cm in long axis.Left kidney measures 10.2 cm in long axis. No evidence of urolithiasissolid masses or hydronephrosis on each side. Urinary bladder was visualized with a volume of 234 cc. Postvoid volume is63 cc. There are bilateral ureteral jets. Previously noted mass on theposterior wall of the urinary bladder is not visualized on today'sexamination. CONCLUSIONS: Stable exophytic hypoechoic lesion in the midpole of theright kidney. Postvoid volume of the bladder 63 cc. No new focalabnormalities identified. -------- FINAL REPORT -------- Dictated By: Krystal Hyde Dictated Date: 03/03/2025 17:57 ET Assigned Physician: Krystal Hyde Reviewed and Electronically Signed By: Krystal Hyde Signed Date: 03/03/2025 18:01 ET Workstation ID: [id number] Transcribed By: Self Edit Transcribed Date: 03/03/2025 17:57 ET us Nidia Mckeon MD IMG US PROCEDURES Final Res ult * External Cardiac MRI (03/02/2025 10:13 AM EDT) Anatomical Region Laterality Modality Cardiac Diagnost ic us Historical Provider [facility] CARD[facility] PROCE DURES Final Result * Hemoglobin A1c (02/07/2025 12:11 PM EDT) Only the most recent of2 resultswithin the time period is included. Pathologist [facility] Hemoglobin A1C 6.0 <6.5 % LAB CHEMISTRY METHOD 02/08/2025 8:51 AM EDT [facility] Mean Bld Glu Estim. 126 mg/dL LAB CHEMISTRY METHOD 02/08/2025 8:51 AM EDT [facility] Blood Venous blood specimen / Unknown Venipuncture / Unknown 02/07/2025 12:11 PM EDT 02/07/2025 12:12 PM EDT Nidia Mckeon MD LAB BLOOD ORDERABLES Final Result [facility] [address] [place] [address], * (ABNORMAL) Basic metabolic panel (02/07/2025 12:11 PM EDT) [facility] Sodium 140 133 - 145 mmol/L LAB CHEMISTRY METHOD 02/07/2025 4:57 PM [facility] Potassium 4.2 3.5 - 5.5 mmol/L LAB CHEMISTRY METHOD 02/07/2025 4:57 PM [facility] Chloride 107 96 - 110 mmol/L LAB CHEMISTRY METHOD 02/07/2025 4:57 PM T [facility] CO2 26 21 - 32 mmol/L LAB CHEMISTRY METHOD 02/07/2025 4:57 PM [facility] Anion Gap 7 3 - 11 LAB CHEMISTRY METHOD 02/07/2025 4:57 PM [facility] Glucose 128(H) 70 - 100 mg/dL LAB CHEMISTRY METHOD 02/07/2025 4:57 PM [facility] BUN 17 5 - 25 mg/dL LAB CHEMISTRY METHOD 02/07/2025 4:57 PM EDT [facility] Creatinine 1.04 0.50 - 1.10 mg/dL LAB CHEMISTRY METHOD 02/07/2025 4:57 PM EDT [facility] eGFR 53(L) >=60 mL/min/1. 73m2 LAB CHEMISTRY METHOD 02/07/2025 4:57 PM EDT [facility] Comment:Calculation based on the Chronic Kidney Disease Epidemiology Collaboration (CKD-EPI) equation refit without adjustment for race. BUN/Creatinine Ratio 16.3 LAB CHEMISTRY METHOD 02/07/2025 4:57 PM EDT [facility] Calcium 9.5 8.5 - 10.5 mg/dL LAB CHEMISTRY METHOD 02/07/2025 4:57 PM EDT [facility] Blood Venous blood specimen / Unknown Venipuncture / Unknown 02/07/2025 12:11 PM EDT 02/07/2025 12:12 PM EDT us Sally Johnston [employer] SURGEON LAB BLOOD ORDERABLES F inal Result [facility] [address] [place] [address], * MR Lumbar Spine wo Contrast (01/24/2025 3:07 PM EDT) Anatomical Region Laterality Modality L-spine, Spine Magnetic Resonan ce 01/25/2025 10:2 9 AM EDT Narrative 01/25/2025 11:55 AM EDT MRI of the lumbosacral spine without intravenous contrast. History chronic back pain. Chronic deformity of the adjacent x-ray of the lumbosacral spine. Examination was performed on 1.5 Lupe magnet without administration of intravenous contrast. Comparison with plain films of the lumbosacral spine from as well as MRI of the lumbosacral spine from 07/15/2024. There is interval progression of the dextroscoliosis in the thoracolumbar segment. Vertebral bodies are maintained in height. And bone marrow signal. Conus medullaris terminates at L1 level. There is mild anterior displacement of L5 over S1. T12-L1 disc is decreased in T2 signal. There is diffuse bulging of the disc no focal disc herniation spinal stenosis or nerve root compression. At L1-2 level there is mild retrolisthesis of L1 over L2. Disc is decreased in height and T2 signal. There is diffuse bulging of the disc and bilateral lateral protrusion. There are hypertrophic degenerative changes in the facet joints. There is narrowing of the lateral recesses and L1 neural foramina with effacement of the L1 nerve roots. At L2-3 level disc is decreased in height and T2 signal. Again noted is some left paramedian extrusion of the disc with disc material extending inferiorly from the disc level. Extruded disc material measures 1.3 cm craniocaudally, 0.9 cm transversely and thumb 0.8 cm AP. There is no significant interval change. There is stenosis of the left lateral recess. There is narrowing of the left L2 neural foramen. Additionally there is diffuse bulging of the disc and broadbase right lateral protrusion. There is narrowing of the right lateral recess and right L2 neural foramen. There is effacement of the right L2 nerve root. There is clumping of the nerve roots in the anterior aspect of the spinal canal. There is moderate spinal stenosis due to discogenic degenerative changes, hypertrophy of the facet joints as well as prominence of the posterior epidural fat. At L3-4 level disc is decreased in height and T2 signal. There is diffuse bulging of the disc as well as some broadbase left lateral protrusion. There is narrowing of the lateral recesses and L3 neural foramina more prominent on the left. There is compression of the left L3 nerve root and thumb effacement of the right L3 nerve root. There are degenerative changes in the facet joints. There is synovial cyst arising posteriorly from the left facet joint. At L4-5 level disc is decreased in T2 signal. There is mild diffuse bulging of the disc. There are severe degenerative changes in the facet joints. There are congenitally short pedicles and prominence of the posterior epidural fat contributing to severe spinal stenosis. There is narrowing of the L4 neural foramina with effacement of the L4 nerve roots. At L5-S1 level disc is decreased in T2 signal. There is mild anterior displacement of L5 over S1. There is diffuse bulging of the disc, exuberant degenerative changes in the facet joints more prominent on the right. There is also possible L5 spondylolysis on the right. There is stenosis of the lateral recesses and L5 neural foramina. There is compression of the L5 nerve roots. Atrophic changes were noted in the paraspinal muscles extending from L1 to 2 S1 level. CONCLUSIONS: No evidence of compression fractures. Progressed dextroscoliosis in the thoracolumbar segment. Multilevel bony and discs degenerative changes without significant interval change since previous MRI examination. Please see details in the report. -------- FINAL REPORT -------- Dictated By: Krystal Hyde Dictated Date: 01/25/2025 10:29 ET Assigned Physician: Krystal Hyde Reviewed and Electronically Signed By: Krystal Hyde Signed Date: 01/25/2025 11:55 ET Workstation ID: [id number] Transcribed By: Self Edit Transcribed Date: 01/25/2025 10:29 ET Procedure Note Krytsal Hyde MD - 01/25/2025 MRI of the lumbosacral spine without intravenous contrast. History chronic back pain. Chronic deformity of the adjacent x-ray of thelumbosacral spine. Examination was performed on 1.5 Lupe magnet without administration ofintravenous contrast. Comparison with plain films of the lumbosacral spinefrom as well as MRI of the lumbosacral spine from 07/15/2024. There is interval progression of the dextroscoliosis in the thoracolumbarsegment. Vertebral bodies are maintained in height. And bone marrowsignal. Conus medullaris terminates at L1 level. There is mild anteriordisplacement of L5 over S1. T12-L1 disc is decreased in T2 signal. There is diffuse bulging of thedisc no focal disc herniation spinal stenosis or nerve root compression. At L1-2 level there is mild retrolisthesis of L1 over L2. Disc isdecreased in height and T2 signal. There is diffuse bulging of the discand bilateral lateral protrusion. There are hypertrophic degenerativechanges in the facet joints. There is narrowing of the lateral recessesand L1 neural foramina with effacement of the L1 nerve roots. At L2-3 level disc is decreased in height and T2 signal. Again noted issome left paramedian extrusion of the disc with disc material extendinginferiorly from the disc level. Extruded disc material measures 1.3 cmcraniocaudally, 0.9 cm transversely and thumb 0.8 cm AP. There is nosignificant interval change. There is stenosis of the left lateral recess.There is narrowing of the left L2 neural foramen. Additionally there isdiffuse bulging of the disc and broadbase right lateral protrusion. Thereis narrowing of the right lateral recess and right L2 neural foramen.There is effacement of the right L2 nerve root. There is clumping of thenerve roots in the anterior aspect of the spinal canal. There is moderatespinal stenosis due to discogenic degenerative changes, hypertrophy of thefacet joints as well as prominence of the posterior epidural fat. At L3-4 level disc is decreased in height and T2 signal. There is diffusebulging of the disc as well as some broadbase left lateral protrusion.There is narrowing of the lateral recesses and L3 neural foramina moreprominent on the left. There is compression of the left L3 nerve root andthumb effacement of the right L3 nerve root. There are degenerativechanges in the facet joints. There is synovial cyst arising posteriorlyfrom the left facet joint. At L4-5 level disc is decreased in T2 signal. There is mild diffusebulging of the disc. There are severe degenerative changes in the facetjoints. There are congenitally short pedicles and prominence of theposterior epidural fat contributing to severe spinal stenosis. There isnarrowing of the L4 neural foramina with effacement of the L4 nerveroots. At L5-S1 level disc is decreased in T2 signal. There is mild anteriordisplacement of L5 over S1. There is diffuse bulging of the disc,exuberant degenerative changes in the facet joints more prominent on theright. There is also possible L5 spondylolysis on the right. There isstenosis of the lateral recesses and L5 neural foramina. There iscompression of the L5 nerve roots. Atrophic changes were noted in the paraspinal muscles extending from L1 to2 S1 level. CONCLUSIONS: No evidence of compression fractures. Progresseddextroscoliosis in the thoracolumbar segment. Multilevel bony and discsdegenerative changes without significant interval change since previousMRI examination. Please see details in the report. -------- FINAL REPORT -------- Dictated By: Krystal Hyde Dictated Date: 01/25/2025 10:29 ET Assigned Physician: Krystal Hyde Reviewed and Electronically Signed By: Krystal Hyde Signed Date: 01/25/2025 11:55 ET Workstation ID: [id number] Transcribed By: Self Edit Transcribed Date: 01/25/2025 10:29 ET us Nidia Mckeon MD IMG MRI PROCEDURES Final Re sult * ECG-Annotated (01/14/2025) us Provider Onbase ECG ORDERABLES Final Result * XR Chest 2 Views (01/13/2025 7:18 PM EDT) Anatomical Region Laterality Modality Body Radiographic Viki ging 01/14/2025 11:4 6 AM EDT Impressions 01/14/2025 11:47 AM EDT No acute pulmonary disease. Code 05076 -------- FINAL REPORT -------- Dictated By: Marco Lion Dictated Date: 01/14/2025 11:46 ET Assigned Physician: Marco Lion Reviewed and Electronically Signed By: Marco Lion Signed Date: 01/14/2025 11:47 ET Workstation ID: [id number] Transcribed By: Self Edit Transcribed Date: 01/14/2025 11:46 ET Narrative 01/14/2025 11:47 AM EDT HISTORY: The patient is an 84-year-old female with chest pain. FINDINGS: PA and lateral radiographs the chest demonstrate degenerative changes and levoscoliosis of the thoracic spine as also seen on the prior study performed 03/21/2020. The cardiac silhouette is within normal limits. The aortic knob is calcified. The lungs and costophrenic angles are clear. Procedure Note Marco Lion MD - 01/14/2025 HISTORY: The patient is an 84-year-old female with chest pain. FINDINGS: PA and lateral radiographs the chest demonstrate degenerativechanges and levoscoliosis of the thoracic spine as also seen on the priorstudy performed 03/21/2020. The cardiac silhouette is within normallimits. The aortic knob is calcified. The lungs and costophrenic anglesare clear. IMPRESSION: No acute pulmonary disease. Code 67997 -------- FINAL REPORT -------- Dictated By: Marco Lion Dictated Date: 01/14/2025 11:46 ET Assigned Physician: Marco Lion Reviewed and Electronically Signed By: Marco Lion Signed Date: 01/14/2025 11:47 ET Workstation ID: [id number] Transcribed By: Self Edit Transcribed Date: 01/14/2025 11:46 ET Neal Alejandro MD IMG XR PROCEDURES Final Result * Troponin I high sensitivity (01/13/2025 5:53 PM EDT) High Sensitivity Troponin I 7 <=54 ng/L LAB CHEMISTRY METHOD 01/13/2025 6:50 PM EDT [facility] Blood Venous blood specimen / Unknown Venipuncture / Unknown 01/13/2025 5:53 PM EDT 01/13/2025 6:04 PM EDT Narrative [facility] - 01/13/2025 6:50 PM EDT High levels of biotin in samples may falsely decrease hsTroponin values. Use caution when interpreting hsTroponin results in patients taking biotin who exhibit renal impairment (eGFR <60) or in patients taking more than 20 mg/day of biotin. Neal Alejandro MD LAB BLOOD ORDERABLES Final Res ult [facility] [address] [place] [address], [place] [phone] * (ABNORMAL) CBC auto differential (01/13/2025 5:53 PM EDT) Only the most recent of2 resultswithin the time period is included. [facility] Signature WBC 8.3 4.8 - 10.8 K/mcL LAB HEMETOLOGY METHOD [facility]/13[facility]2025 6[facility] RBC 3.60(L) 3.80 - 4.80 M/mcL LAB HEMETOLOGY METHOD 01/13/2025 6:[facility] Hemoglobin 10.8(L) 11.5 - 16.0 g/dL LAB HEMETOLOGY METHOD 01/13/2025 6:12 PM [facility] Hematocrit 33.7(L) 35.0 - 47.0 % LAB HEMETOLOGY METHOD 01/13/2025 6:12 PM [facility] MCV 93.6 79.0 - 98.0 FL LAB HEMETOLOGY METHOD 01/13/2025 6:12 PM [facility] MCH 30.0 27.0 - 32.0 pcg LAB HEMETOLOGY METHOD 01/13/2025 6:12 PM [facility] MCHC 32.0 32.0 - 37.0 g/dL LAB HEMETOLOGY METHOD 01/13/2025 6:12 PM [facility] RDW 15.1(H) 11.0 - 15.0 % LAB HEMETOLOGY METHOD 01/13/2025 6:12 PM [facility] Platelets 206 130 - 400 K/mcL LAB HEMETOLOGY METHOD 01/13/2025 6:12 PM [facility] MPV 10.5 7.0 - 11.0 FL LAB HEMETOLOGY METHOD 01/13/2025 6:12 PM [facility] NRBC 0.0 <1.0 % LAB HEMETOLOGY METHOD 01/13/2025 6:12 PM [facility] NRBC Absolute 0.00 <0.10 K/mcL LAB HEMETOLOGY METHOD 01/13/2025 6:12 PM EDT [facility] Neutrophils Relative 64.9 % LAB HEMETOLOGY METHOD 01/13/2025 6:12 PM [facility] Lymphocytes Relative 22.4 % LAB HEMETOLOGY METHOD 01/13/2025 6:12 PM [facility] Monocytes Relative 10.0 % LAB HEMETOLOGY METHOD 01/13/2025 6:12 PM [facility] Eosinophils Relative 1.9 % LAB HEMETOLOGY METHOD 01/13/2025 6:12 PM [facility] Basophils Relative 0.4 % LAB HEMETOLOGY METHOD 01/13/2025 6:12 PM [facility] Immature Granulocytes Relative 0.4 % LAB HEMETOLOGY METHOD 01/13/2025 6:12 PM [facility] Neutrophils Absolute 5.36 1.50 - 7.00 K/mcL LAB HEMETOLOGY METHOD 01/13/2025 6:12 PM [facility] Lymphocytes Absolute 1.85 1.00 - 5.00 K/mcL LAB HEMETOLOGY METHOD 01/13/2025 6:12 PM [facility] Monocytes Absolute 0.83 0.20 - 1.00 K/mcL LAB HEMETOLOGY METHOD 01/13/2025 6:12 PM T [facility] Eosinophils Absolute 0.16 0.00 - 0.50 K/mcL LAB HEMETOLOGY METHOD 01/13/2025 6:12 PM [facility] Basophils Absolute 0.03 0.00 - 0.20 K/mcL LAB HEMETOLOGY METHOD 01/13/2025 6:12 PM [facility] Immature Granulocytes Absolute 0.03 0.00 - 0.03 K/mcL LAB HEMETOLOGY METHOD 01/13/2025 6:12 PM EDT [facility] Blood Venous blood specimen / Unknown Venipuncture / Unknown 01/13/2025 5:53 PM EDT 01/13/2025 6:03 PM EDT us Neal Alejandro MD LAB BLOOD ORDERABLES Final Res ult Performing Organization Address [facility]/ZIP Co de Phone Number [facility] [address] [place] [address], [place] [phone] * (ABNORMAL) B-type natriuretic peptide (01/13/2025 5:53 PM EDT) BNP 303(H) <=100 pcg/mL LAB CHEMISTRY METHOD 01/13/2025 7:07 PM EDT [facility] Blood Venous blood specimen / Unknown Venipuncture / Unknown 01/13/2025 5:53 PM EDT 01/13/2025 6:04 PM EDT us Neal Alejandro MD LAB BLOOD ORDERABLES Final Res ult Performing Organization Address [facility] Co de Phone Number [facility] [address] [place] [address], [place] [phone] * Magnesium (01/13/2025 5:53 PM EDT) Magnesium 2.1 1.9 - 2.6 mg/dL LAB CHEMISTRY METHOD 01/13/2025 6:44 PM EDT [facility] Blood Venous blood specimen / Unknown Venipuncture / Unknown 01/13/2025 5:53 PM EDT 01/13/2025 6:04 PM EDT us Neal Alejandro MD LAB BLOOD ORDERABLES Final Res ult Performing Organization Address City/[facility]/ZIP Co de Phone Number [facility] [address] [place] [address], [place] [phone] * Lipase (01/13/2025 5:53 PM EDT) Pathologist [facility] Lipase 52 13 - 75 unit/L LAB CHEMISTRY METHOD 01/13/2025 6:44 PM T [facility] Blood Venous blood specimen / Unknown Venipuncture / Unknown 01/13/2025 5:53 PM EDT 01/13/2025 6:04 PM EDT us Neal Alejandro MD LAB BLOOD ORDERABLES Final Res ult [facility] [address] [place] [address], [place] [phone] * (ABNORMAL) Comprehensive metabolic panel (01/13/2025 5:53 PM EDT) [facility] Sodium 138 133 - 145 mmol/L LAB CHEMISTRY METHOD 01/13/2025 6:44 PM [facility] Potassium 5.1 3.5 - 5.5 mmol/L LAB CHEMISTRY METHOD 01/13/2025 6:44 PM [facility] Chloride 107 96 - 110 mmol/L LAB CHEMISTRY METHOD 01/13/2025 6:44 PM [facility] CO2 27 21 - 32 mmol/L LAB CHEMISTRY METHOD 01/13/2025 6:44 PM [facility] Anion Gap 4 3 - 11 LAB CHEMISTRY METHOD 01/13/2025 6:44 PM [facility] Glucose 102(H) 70 - 100 mg/dL LAB CHEMISTRY METHOD 01/13/2025 6:44 PM [facility] BUN 20 5 - 25 mg/dL LAB CHEMISTRY METHOD 01/13/2025 6:44 PM [facility] Creatinine 1.11(H) 0.50 - 1.10 mg/dL LAB CHEMISTRY METHOD 01/13/2025 6:44 PM [facility] eGFR 49(L) >=60 mL/min/1. 73m2 LAB CHEMISTRY METHOD 01/13/2025 6:44 PM [facility] Comment:Calculation based on the Chronic Kidney Disease Epidemiology Collaboration (CKD-EPI) equation refit without adjustment for race. BUN/Creatinine Ratio 18.0 LAB CHEMISTRY METHOD 01/13/2025 6:44 PM T [facility] Calcium 9.4 8.5 - 10.5 mg/dL LAB CHEMISTRY METHOD 01/13/2025 6:44 PM [facility] AST (SGOT) 16 10 - 42 unit/L LAB CHEMISTRY METHOD 01/13/2025 6:44 PM [facility] ALT (SGPT) 15 10 - 60 unit/L LAB CHEMISTRY METHOD 01/13/2025 6:44 PM [facility] Alkaline Phosphatase 65 42 - 121 unit/L LAB CHEMISTRY METHOD 01/13/2025 6:44 PM [facility] Total Protein 6.6 6.0 - 8.0 g/dL LAB CHEMISTRY METHOD 01/13/2025 6:44 PM [facility] Albumin 4.2 3.2 - 5.0 g/dL LAB CHEMISTRY METHOD 01/13/2025 6:44 PM [facility] Total Bilirubin 0.4 0.0 - 1.4 mg/dL LAB CHEMISTRY METHOD 01/13/2025 6:44 PM T [facility] Blood Venous blood specimen / Unknown Venipuncture / Unknown 01/13/2025 5:53 PM EDT 01/13/2025 6:04 PM EDT us Neal Alejandro MD LAB BLOOD ORDERABLES Final Res ult [facility] [address] [place] [address], [place] [phone] * ECG 12 lead (01/13/2025 5:43 PM EDT) Only the most recent of2 resultswithin the time period is included. Ventricular Rate ECG 55 BPM GEMUSE Atrial Rate 55 BPM GEMUSE P-R Interval 190 ms GEMUSE QRS Duration 84 ms GEMUSE Q-T Interval 430 ms GEMUSE QTc 411 ms GEMUSE P Wave Branch 61 degrees GEMUSE R Branch 3 degrees GEMUSE T Branch 2 degrees GEMUSE ECG Interpretation Sinus bradycardia Low voltage QRS Borderline ECG When compared with ECG of 13-JAN-2025 17:42, (unconfirmed) No significant change was found Confirmed by EB HAIDER ([id number]) on 01/14/2025 11:02:07 PM GEMUSE 01/13/2025 5:43 PM EDT 01/14/2025 11:02 PM EDT Neal Alejandro MD ECG ORDERABLES Final Result Performing Organization Address City/[facility]/ZIP Co de Phone Number GEMUSE * Thyroid stimulating hormone with reflex to free t4 and free t3 (01/11/2025 8:27 AM EDT) Pathologist [facility] TSH 0.97 0.40 - 4.00 mcIU/mL LAB CHEMISTRY METHOD 01/11/2025 12:56 PM EDT [facility] Blood Venous blood specimen / Unknown Venipuncture / Unknown 01/11/2025 8:27 AM EDT 01/11/2025 8:27 AM EDT Nidia Mckeon MD LAB BLOOD ORDERABLES Final Result Performing Organization Address City/[facility]/ZIP Co de Phone Number [facility] [address] [place] [address], * Hepatic function panel (01/11/2025 8:27 AM EDT) Total Protein 6.7 6.0 - 8.0 g/dL LAB CHEMISTRY METHOD 01/11/2025 11:32 AM EDT [facility] Albumin 4.0 3.2 - 5.0 g/dL LAB CHEMISTRY METHOD 01/11/2025 11:32 AM EDT [facility] Total Bilirubin 0.5 0.0 - 1.4 mg/dL LAB CHEMISTRY METHOD 01/11/2025 11:32 AM EDT [facility] Bilirubin, Direct 0.2 0.0 - 0.3 mg/dL LAB CHEMISTRY METHOD 01/11/2025 11:32 AM EDT [facility] Bilirubin, Indirect 0.3 0.0 - 1.1 mg/dL LAB CHEMISTRY METHOD 01/11/2025 11:32 AM [facility] ALT (SGPT) 15 10 - 60 unit/L LAB CHEMISTRY METHOD 01/11/2025 11:32 AM [facility] AST (SGOT) 19 10 - 42 unit/L LAB CHEMISTRY METHOD 01/11/2025 11:32 AM T [facility] Alkaline Phosphatase 69 42 - 121 unit/L LAB CHEMISTRY METHOD 01/11/2025 11:32 AM T [facility] Blood Venous blood specimen / Unknown Venipuncture / Unknown 01/11/2025 8:27 AM EDT 01/11/2025 8:27 AM EDT us Nidia Mckeon MD LAB BLOOD ORDERABLES Final Result [facility] [address] [place] [address], * XR Lumbar Spine 4+ Views (01/11/2025 8:16 AM EDT) Anatomical Region Laterality Modality Spine, L-spine Radiographic Viki ging 01/11/2025 9:00 AM EDT Impressions 01/11/2025 9:17 AM EDT 1. Chronic compression deformities of T12, L1 and L2 not present on most recent MRI examination. If there is any concern for an acute process, consider repeat MRI lumbar spine 2. Chronic fractures of the left pubis and ischium -------- FINAL REPORT -------- Dictated By: Zuleyma Johnson Dictated Date: 01/11/2025 09:00 ET Assigned Physician: Zuleyma Johnson Reviewed and Electronically Signed By: Zuleyma Johnson Signed Date: 01/11/2025 09:17 ET Workstation ID: [id number] Transcribed By: Self Edit Transcribed Date: 01/11/2025 09:00 ET Narrative 01/11/2025 9:17 AM EDT HISTORY: chronic low back pain TECHNIQUE: 4 views of the lumbar spine COMPARISON: Lumbar spine radiograph from 01/17/2023, MRI lumbar spine from 07/15/2024 FINDINGS: Chronic compression deformities at the superior endplate of T12, L1 and L2. There is grade 1 anterolisthesis of L5 on S1. There is grade 1 retrolisthesis of L2 on L3 3. Extensive facet arthropathy is present at the lower lumbar spine. There is severe neuroforaminal stenosis at multiple levels predominantly within the lower lumbar spine. The sacroiliac joints are grossly patent. Chronic deformity of the left pubis and ischium Procedure Note Zuleyma Johnson MD - 01/11/2025 HISTORY: chronic low back pain TECHNIQUE: 4 views of the lumbar spine COMPARISON: Lumbar spine radiograph from 01/17/2023, MRI lumbar spine from07/15/2024 FINDINGS: Chronic compression deformities at the superior endplate of T12, L1 andL2. There is grade 1 anterolisthesis of L5 on S1. There is grade 1retrolisthesis of L2 on L3 3. Extensive facet arthropathy is present atthe lower lumbar spine. There is severe neuroforaminal stenosis atmultiple levels predominantly within the lower lumbar spine. Thesacroiliac joints are grossly patent. Chronic deformity of the left pubisand ischium IMPRESSION: 1. Chronic compression deformities of T12, L1 and L2 not present on mostrecent MRI examination. If there is any concern for an acute process,consider repeat MRI lumbar spine 2. Chronic fractures of the left pubis and ischium -------- FINAL REPORT -------- Dictated By: Zuleyma Johnson Dictated Date: 01/11/2025 09:00 ET Assigned Physician: Zuleyma Johnson Reviewed and Electronically Signed By: Zuleyma Johnson Signed Date: 01/11/2025 09:17 ET Workstation ID: [id number] Transcribed By: Self Edit Transcribed Date: 01/11/2025 09:00 ET us Nidia Mckeon MD IMG XR PROCEDURES Final Res ult * Lipid panel with reflex to direct LDL (10/26/2024 8:57 AM EDT) Cholesterol 166 0 - 200 mg/dL LAB CHEMISTRY METHOD 10/26/2024 2:03 PM EDT [facility] Triglycerides 128 0 - 150 mg/dL LAB CHEMISTRY METHOD 10/26/2024 2:03 PM EDT [facility] HDL 62 >=40 mg/dL LAB CHEMISTRY METHOD 10/26/2024 2:03 PM EDT [facility] LDL Calculated 78 0 - 100 mg/dL LAB CHEMISTRY METHOD 10/26/2024 2:03 PM EDT [facility] VLDL Cholesterol Get 25.6 mg/dL LAB CHEMISTRY METHOD 10/26/2024 2:03 PM EDT [facility] Non HDL Chol. (LDL+VLDL) 104 <145 mg/dL LAB CHEMISTRY METHOD 10/26/2024 2:03 PM EDT [facility] Chol/HDL Ratio 2.7 0.0 - 4.4 LAB CHEMISTRY METHOD 10/26/2024 2:03 PM EDT [facility] Blood Venous blood specimen / Unknown Venipuncture / Unknown 10/26/2024 8:57 AM EDT 10/26/2024 8:57 AM EDT us Nidia Mckeon MD LAB BLOOD ORDERABLES Final Result [facility] [address] [place] [address], * [facility] DEXA AXIAL SKELETON (11/28/2023 9:00 AM EDT) Anatomical Region Laterality Modality Mammography 11/28/2023 8:13 AM EDT Narrative 11/28/2023 9:00 AM EDT [facility] Diagnostic Imaging Department [address] [place] [address] Patient: BISI TALLEY /Age/Sex: 1940 - 83 - F Unit#: [id number] Location/Status: [facility]/REG CLI Mnemonic[facility] Ordering Physician: PRINCE NOLASCO MD [facility] Dexa Axial Skeleton - 11/28/23846 Report Status:Signed HISTORY: The patient is an 83-year-old postmenopausal female with clinical concern for metabolic bone disease. FINDINGS: Dual energy x-ray absorptiometry of the lumbar spine and femurs is performed. The mean bone mineral density at L1-2 is 1.046 gm/cm2 which is 90% of that of young normals and 111% of that of age matched controls. This yields a T- score of -1.0 and a Z-score of 0.9 and there is therefore no evidence of osteoporosis or osteopenia here. The mean bone mineral density of the femurs bilaterally is 0.750 gm/cm2 which is 74% of that of young normals and 101% of that of age matched controls. This yields a T-score of -2.0 and a Z-score of 0.1 which is diagnostic of osteopenia. The T-score of the right femoral neck is -2.3 and that of the left femoral neck is -2.4 which is diagnostic of osteopenia. IMPRESSION: 1. Osteopenia. There has been an increase of 12.1% in bone mineral density in the lumbar spine since the prior examination of 04/13/2021. There has been a decrease of 1.6% in bone mineral density in the right femur and a decrease of 2.4% in bone mineral density in the left femur. 2. FRAX analysis yields a 10-year probability of major osteoporotic fracture of 25.1% and a 10-year probability of hip fracture of 8.0%. Code 71235 Dictating Physician: MARCO LION MD Electronically Signed by: MARCO LION MD Dic Date/Time: 11/28/23 0856 Sign date/Time: 11/28/23 0900 Procedure Note Marco Lion MD - 02/25/2024 [facility] Diagnostic Imaging Department [address] [place] [address] Patient: BISI TALLEY/Age/Sex: 1940 83 - F Unit#: [id number] Location/Status: [facility]/REG CLI Mnemonic[facility] Ordering Physician: PRINCE NOLASCO MD [facility] Dexa Axial Skeleton - 11/28/23 - 0847 Report Status:Signed HISTORY: The patient is an 83-year-old postmenopausal female withclinical concern for metabolic bone disease. FINDINGS: Dual energy x-ray absorptiometry of the lumbar spine and femursis performed. The mean bone mineral density at L1-2 is 1.046 gm/cm2 which is90% of that of young normals and 111% of that of age matched controls. Thisyields a T- score of -1.0 and a Z-score of 0.9 and there is therefore no evidence of osteoporosis or osteopenia here. The mean bone mineral density of the femurs bilaterally is 0.750 gm/lg6vwrhs is 74% of that of young normals and 101% of that of age matched controls.This yields a T-score of -2.0 and a Z-score of 0.1 which is diagnostic ofosteopenia. The T-score of the right femoral neck is -2.3 and that of the left femoralneck is -2.4 which is diagnostic of osteopenia. IMPRESSION: 1. Osteopenia. There has been an increase of 12.1% in bone mineraldensity in the lumbar spine since the prior examination of 04/13/2021. There has marcie decrease of 1.6% in bone mineral density in the right femur and a decreaseof 2.4% in bone mineral density in the left femur. 2. FRAX analysis yields a 10-year probability of major osteoporoticfracture of 25.1% and a 10-year probability of hip fracture of 8.0%. 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 Health Care Decision (hx) 03/03/2023 AD LEMUS DIRECTIVE Health Care Decision (hx) 03/03/2023 AD LEMUS DIRECTIVE Health Care Decision (hx) 02/07/2023 HE ALTH CARE PROXY Health Care Decision (hx) 02/07/2023 HE ALTH CARE PROXY Health Care Decision (hx) 02/07/2023 HE ALTH CARE PROXY Health Care Decision (hx) 02/07/2023 HE ALTH CARE PROXY Health Care Decision (hx) 02/07/2023 HE ALTH CARE PROXY Health Care Decision (hx) 02/07/2023 HE ALTH CARE PROXY Health Care Decision (hx) 02/07/2023 HE ALTH CARE PROXY Health Care Decision (hx) 02/06/2023 HE ALTH CARE PROXY Health Care Decision (hx) 02/06/2023 HE ALTH CARE PROXY Health Care Decision (hx) 02/06/2023 HE ALTH CARE PROXY Health Care Decision (hx) 02/06/2023 HE ALTH CARE PROXY Health Care Decision (hx) 02/06/2023 HE ALTH CARE PROXY Health Care Decision (hx) 02/06/2023 HE ALTH CARE PROXY Health Care Decision (hx) 02/06/2023 HE ALTH CARE PROXY Health Care Decision (hx) 02/04/2023 AD LEMUS DIRECTIVE Health Care Decision (hx) 02/04/2023 AD LEMUS DIRECTIVE Health Care Decision (hx) 02/04/2023 AD LEMUS DIRECTIVE Health Care Decision (hx) 02/04/2023 AD LEMUS DIRECTIVE Health Care Decision (hx) 02/04/2023 AD LEMUS DIRECTIVE Health Care Decision (hx) 02/04/2023 AD LEMUS DIRECTIVE Health Care Decision (hx) 02/04/2023 AD LEMUS DIRECTIVE Health Care Decision (hx) 02/04/2023 AD LEMUS DIRECTIVE * Full Code - Default (Latest Code Status on File) Date Activated Date Inactivated Comments 09/13/2024 8:57 AM 09/13/2024 1:09 PM This is order is used when code status has not been discussed with the patient, or code status is otherwise unknown/unconfirmed To update the patient's code status, place a code status order. Do not modify or discontinue any currently active code status orders. Care Teams Marine Fireman Relationship Specialty Start Date End Date Nidia Mckeon MD [address] [place] [address] PCP - General 04/02/23
== END 2025-04-01 12:03 | disposition home or self-care (01) ==
PROVIDERS: PCP Internal Medicine; Visit Provider Physical Medicine & Rehabilitation
DX: M54.16 Radiculopathy, lumbar region (principal)
CPT/HCPCS: 64483; 64484

== ENCOUNTER 2025-04-01 11:21 | Outpatient (REF) | payer MEDICARE, SELFPAY | END 2025-04-01 11:22 | disposition home or self-care (01) | LOC: HO.HPHYSR 11:21 | PROVIDERS: PCP Internal Medicine; Visit Provider Physical Medicine & Rehabilitation | DX: M54.16 Radiculopathy, lumbar region (principal) | CPT/HCPCS: 64483; 64484; J2003; J3301; Q9967 ==

== ENCOUNTER 2025-04-26 07:53 | Outpatient (AMB) | payer MEDICARE, SELFPAY ==
[2025-04-26 07:55] VITALS: BMI 25.7
--- NOTE | 2025-04-26 07:55 | A.PHYSOV_ITS ---
Vital Signs 04/26/25 07:55 Height 5 ft 3 in Weight 145 lb BMI 25.7 Intake Visit Reasons: F/U after injection 04/01/2025 Intake Note: Patient is a 84 year old female in office for a follow up after Right L2 and L4 Transforaminal Epidural Injection 04/01/25. Patient is feeling much better after injection Manager Lsw Required: No Allergies bee pollen (bees) Allergy (Unknown, Verified 04/26/25 07:55) Unknown HPI Comments Details: History of Present Illness The patient is an 84 year old female presenting for a follow-up visit for persistent lower back pain and lumbar radiculitis. She has a history of chronic low back issues, having received multiple lumbar injections over the last couple of years, including sacroiliac joint injections and transforaminal procedures. She underwent a bilateral L5 decompression, facetectomy, and foraminotomy on September 13, 2024, which unfortunately did not alleviate her pain. Since November 2024, she has experienced right-sided pain in her lower back that radiates to the right inner thigh, with no inciting injury. She ambulates with a single-point cane and has a walker at home. A lumbosacral spine MRI from January 24, 2025, revealed a paramedian disc extrusion at L2-L3 with effacement of the right L2 and L3 nerve roots, and severe L4-L5 central spinal canal stenosis secondary to congenitally short pedicles and epidural lipomatosis. Most recently, she received right L2 and L4 transforaminal epidural steroid injections on April 01, 2025. She reports significant improvement since the procedure and is currently participating in chair yoga. Pain Description - Location: Right-sided lower back. - Radiation: The pain radiates to the right inner thigh. - Onset: The thigh pain began in November 2024. - Relieving Factors: Pain is much improved following recent L2 and L4 transforaminal epidural steroid injections. - Exacerbating Factors: Pain is aggravated by being on her feet. - Associated Sensation: During a recent injection, she felt a sensation down her leg, which was explained to be related to the nerve that was being pinched. - Current Status: She reports being much improved and doing really good, though some pain persists. Results - Lumbosacral spine MRI (01/24/2025): - Left paramedial disc extrusion at L2-L3 with effacement of the right L2 and L3 nerve roots. - Severe L4-L5 central spinal canal stenosis secondary to congenitally short pedicles and epidural lipomatosis. 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 - Neurological: Reports pain radiating to the right inner thigh. - Constitutional: Denies recent injury. - General: Reports feeling much improved. Physical Exam Exam Exam: Physical Exam Patient appears to be in no acute distress. Ambulates with a single-point cane. Lumbar range of motion was restricted in extension and side bending. Dural tension signs were negative today. Neurological examination reveals weakness of the right hip flexion. Heel walk and toe walk were not tested. Patient demonstrated no upper motor neuron signs. The SI provocative maneuvers were negative. Vital Signs: BMI result Body Mass Index 25.7 Assessment & Plan Assessment & Plan (1) Lumbar disc herniation: Code(s): M51.26 - Other intervertebral disc displacement, lumbar region Category: Medical (2) Lumbar radiculitis: Code(s): M54.16 - Radiculopathy, lumbar region Category: Medical (3) Spinal stenosis, lumbar region with neurogenic claudication: Code(s): M48.062 - Spinal stenosis, lumbar region with neurogenic claudication Category: Medical Plan Pain Management - Analgesia: Recent L2 and L4 transforaminal epidural steroid injections on 04/01/2025 have provided significant pain relief. - Affect: The patient feels the treatment worked, is happy with the improvement, and describes it as a big relief. - Adverse Effects: No adverse effects were reported from the recent procedure. - Activities of Daily Living: The patient ambulates with a single-point cane and has a walker at home. - She engages in chair yoga. - She is advised to take frequent breaks and sit down if pain increases with activity. - Aberrant Drug Related Behaviors: Not discussed. Plan Patient was informed and verbally consented to the use of an ambient scribe for clinic note documentation during this visit. 1. Lumbar Radiculopathy The patient's right-sided lower back pain with radiation to the inner thigh is consistent with her MRI findings of L2-L3 disc extrusion with right L2/L3 nerve root effacement and L4-L5 spinal stenosis. She has experienced significant improvement following recent right-sided L2 and L4 transforaminal epidural steroid injections. The plan is to continue current management and monitor her symptoms. Repeat injections can be considered in approximately three months (end of June) if her pain returns. She was encouraged to continue with chair yoga and advised to take breaks and avoid pushing through pain during activities. She will follow up on a PRN basis, calling to schedule an appointment if symptoms worsen. Discussion Notes I discussed with the patient that her right-sided pain radiating to the inner thigh is caused by nerve pinching in her lower back, specifically at the L2-L3 and L4-L5 levels, which corresponds to her recent MRI findings. We reviewed the positive outcome of her recent L2 and L4 transforaminal epidural steroid injections, and she confirmed significant pain relief. I informed her that if she requires further treatment, another set of injections could be administered in about three months from the last procedure, around the end of June. We agreed she will call as needed for a follow-up appointment, potentially before a planned trip in September if her symptoms recur. I provided anticipatory guidance, advising her to continue with chair yoga, take frequent breaks, and avoid activities that provoke pain. Patient Instructions - Continue with your gentle activities, like chair yoga. - It is important to listen to your body. - If you are on your feet and your back starts to bother you, please sit down an d take a break. - Do not try to do activities through the pain. - If your pain returns, you are eligible for another injection in about three months (around the end of June). - Please call the office to schedule an appointment if your pain gets worse or if you feel you need another injection. Coding Level of Care Code Est Pt Level 3 (56269) Add On Problem Visit Only Diagnoses Lumbar disc herniation M51.26 Lumbar radiculitis M54.16 Spinal stenosis, lumbar region with neurogenic claudication M48.062
--- OUTSIDE RECORDS SUMMARY | 2025-04-26 07:59 | XMS_ITS | Clinical Summary ---
Author Organization [facility] Prior to 10/09/[address] [place] [address] Care Team Providers Care Projects Manager Name Role Phone Nidia Mckeon MD Primary Care Provider [phone] Allergies No known active allergies Medications No [...] PCV20) 02/19/2019 02/19/2018 COVID-19 Vaccine (4 - 5-2 6 season) 2025 02/22/2021, 07/04/2020, 06/13/2020 Influenza Vaccine (#1) 2025 0, 01/22/2019, 02/17/2018 Shingrix-Zoster Vaccine Completed 04/12/20 19, 01/22/2019 Hepatitis B Vaccines Aged Out No long er eligible based on patient's age to complete this topic RSV Ped < 20 months Aged Out No longe r eligible based on patient's age to complete this topic Care Teams Projects Manager Relationship Specialty Start Date End Date Nidia Mckeon MD [address] [place] [address] PCP - General Internal Medicine 04/02/23
--- OUTSIDE RECORDS SUMMARY | 2025-04-26 07:59 | XMS_ITS ---
Author Name [facility] Organization Unknown Encounters Encounter Type Encounter Reason Primary Diagnosis Location Date Ambulatory [facility] [place] 01/17/2025 Care Team Organization Name Specialty Phone Email Start Date End Da te [facility] AC 12/29/2024 [facility] AZEEM GRAHAM Primary Care [email or web address] 04/23/2023 12/29/2023
--- OUTSIDE RECORDS SUMMARY | 2025-04-26 07:59 | XMS_ITS | Encounter Summary ---
Author Organization [facility] Address [address] [place] [address] Care Team Providers Care Steel Handler Name Role Phone Nidia Mckeon MD Primary Care Provider [phone] Reason for Referral * Consultation (Routine) - Closed Specialty Diagnoses / Procedures Referred By Charles rivas Referred To Contact Urology Diagnoses Abnormal ultrasound of kidney Nidia Mckeon MD [address] [place] [address] Phone: tel: fax: [facility] [address] [address] Phone: tel: fax: Referral ID Status Reason Start Date Expiration Date V isits Requested Visits Authorized [id number] Closed Specialty Services Required 03/11/2025 03/11/2026 1 1 Encounter Details Date Type Department Care Team (Late st Contact Info) Description 03/11/2025 Results Follow-Up Adult Medicine [address] [phone] Nidia Mckeon MD [address] [place] [address] Social History Tobacco Use Types Packs/Day Years [...] for your loved ones. For example, child life specialist or elderly care for an older [...] 8:15 AM EST Office Visit Pulmonology - [address] [place] [phone] Rocio Morrell MD [address] [place] [phone] 07/12/2025 8:45 AM EST Office Visit Adult [address] [phone] Nidia Mckeon MD [address] [place] [address] 01/10/2026 10:00 AM EDT Office Visit Adult [address] [phone] Nidia Mckeon MD [address] [place], [place] 03/07/2026 8:30 AM EDT Office Visit Urogynecology [address] [phone] Manasa Hagan MD [address] [place] [phone] Scheduled Referrals Name Type Priority Associated Diagnoses [...] documented as of this encounter Care Teams Steel Handler Relationship Specialty Start Date End Date Nidia Mckeon MD [address] [place] [address] PCP - General 04/02/23 documented as of this encounter
--- OUTSIDE RECORDS SUMMARY | 2025-04-26 07:59 | XMS_ITS | Continuity of Care Document ---
Author Organization [facility] [address] [place] [address] Phone [phone] Care Team Providers Care Multi Mission Helicopter Aircrewman Name Role Phone Nidia Mckeon MD Care Team Information Fuel Dock Attendant [phone] Problems Active Problems Provider Date Essential hypertension [...] Qnty Indications Order ing Provider Date Atorvastatin Hhwyptz49mi Tablets Take 1 Tablet By Mouth Every Day Delio Miller M.D. Levothyroxine Shntlr22nlj Tablets Take 1 Tablet By Mouth Every Day Except Skip Saturdays 90tabs Azul Nolasco M.D. Wsxfrhcgth63rg Capsules DR Take 1 Capsule By Mouth Every Day Delio Miller M.D. Multivitamin Adults 50+Adlt 50+ Tablets 1 by mouth every day Azul Nolasco M.D. Losartan Dvgitjrln87db Tablets 1 by mouth every day Unknown Shecpoyth86ln Tablets ER 24HR 1 by mouth every day Unknown Sertraline AIF08kc Tablets 1 by mouth every day Unknown Irafbuepim845cf Capsules 1 capsule 3 times daily Unknown Vitamin J902egm (2000 Ut) Capsules 1 by mouth every day Unknown Depjdkqic0nn Capsules 1 every night at bedtime Unknown Estradiol0.1mg/GM Cream 2 times weekly Unknown Anoro Euhzgkt65.5-25mcg/Act Aerosol Inahle 1 puff By Mouth Once [...] 15-65 TSH With Reflex To FT4 09/26/2022 [facility] TSH With Reflex To FT4 1.73 uIU/mL (0.4-4.2) TSH With Reflex To FT4 12/28/2021 [facility] TSH With Reflex To FT4 1.18 uIU/mL (0.4-4.2) 1 Vitamin D deficiency has been defined by the [place] of [employer] and an Endocrine Society practice guideline as a level of serum 25-OH vitamin D less than 20 ng/mL (1,2). The Endocrine Society went on to further define vitamin D insufficiency as a level between 21 and 29 ng/mL (2). 1. IOM ([place] of [employer]). 2010. Dietary reference intakes for calcium and D. [place]: The National Academies Press. 2. Chong Gray, Caio BASSETT, et al. Evaluation, treatment, and prevention of vitamin D deficiency: an Endocrine Society clinical practice guideline. JCEM. 2010; 96(7):1911-30. 2 Vitamin D deficiency has been defined by the [place] of [employer] and an Endocrine Society practice guideline as a level of serum 25-OH vitamin D less than 20 ng/mL (1,2). The Endocrine Society went on to further define vitamin D insufficiency as a level between 21 and 29 ng/mL (2). 1. IOM ([place] of [employer]). 2010. Dietary reference intakes for calcium and D. [place]: The National Academies Press. 2. Chong Gray, Caio BASSETT, et al. Evaluation, treatment, and prevention of vitamin D deficiency: an Endocrine Society clinical practice guideline. JCEM. 2010; 96(7):1911-30. Procedures Date Code Description Status 04/21/2024 92854 Collection Of Venous Blood B y Venipuncture Completed 09/26/2022 13929 Collection Of Venous Blood B y Venipuncture Completed 12/28/2021 53886 Collection Of Venous Blood B y Venipuncture [...]
--- OUTSIDE RECORDS SUMMARY | 2025-04-26 07:59 | XMS_ITS | Patient Health Record ---
Author Organization [facility] Address [address] [place] [address] Care Team Providers Care Customer Service Rep Name Role Phone Juanpablo Horowitz Unavailable [phone] Reason For Referral No Information Social History [...]
--- OUTSIDE RECORDS SUMMARY | 2025-04-26 08:00 | XMS_ITS | Clinical Summary ---
Author Organization [facility] [address] Address [address] [place] [address] Phone Care Team Providers Care Insurance Sales Representative Name Role Phone Nidia Mckeon MD Primary Care Provider Allergies Active Allergy Reactions Criticality Noted Date Comments Lisinopril Cough 10/24/2023 Other 01/11/2022 BEE STINGS Other reaction(s): THROAT CLOSES Medications levothyroxine (SYNTHROID, LEVOTHROID) 75 mcg tablet Take 1 tablet Friday through Friday, skip Friday. 11/27/19 24 Active estradioL (ESTRACE) 0.01 % (0.1 mg/gram) vaginal cream Please use 0.5g (a pea-sized amount) on your finger and place inside the vagina for 2 weeks at night, and then decrease to twice a week at night (Mondays and ) 05/14/19 24 Active acetaminophen (TylenoL) 325 mg tablet Take 2 tablets (650 mg total) by mouth. 01/15/20 23 Active losartan (Cozaar) 50 mg tabletIndications :Essential (primary) hypertension Take 1 tablet (50 mg total) by mouth 1 (one) time each day. 30 each 11 10/22/19 026 Active umeclidinium-frandy nteroL (Anoro Ellipta) 62.5-25 mcg/actuation inhalerIndication s:Chronic obstructive pulmonary disease, unspecified COPD type ([facility] V24, [facility] V28) Inhale 1 puff by mouth 1 (one) time each day. 1 each 10/26/19 25 026 Active cholecalciferol (VITAMIN D-3) 50 mcg (2,000 unit) capsule Take 1 capsule (2,000 Units total) by mouth 1 (one) time each day. 90 capsule 1 11/25/19 25 Active meloxicam (MOBIC) 7.5 mg tablet Take 1 tablet (7.5 mg total) by mouth 2 (two) times a day if needed for moderate pain (WITH MEALS). 60 each 1 11/27/19 25 Active EPINEPHrine (EpiPen 2-Beka) 0.3 mg/0.3 mL injection Inject 0.3 mL (0.3 mg total) into the thigh if needed for anaphylaxis. 2 each 2 01/08/20 25 Active gabapentin (NEURONTIN) 100 mg capsule Take 1 capsule (100 mg total) by mouth 2 (two) times a day. Active atorvastatin (LIPITOR) 20 mg tablet TAKE 1 TABLET BY MOUTH DAILY 90 tablet 1 01/19/20 25 Active omeprazole (PriLOSEC) [address] capsule Take 1 capsule (20 mg total) by mouth 1 (one) time each day. Do not crush or chew. 90 capsule 1 01/19/20 25 Active metroNIDAZOLE (METROCREAM) 0.75 % cream APPLY TOPICALLY TO FACE TWICE DAILY 06/15/19 25 Active diclofenac (VOLTAREN) 1 % topical gel Apply 2 g topically 2 (two) times a day. 60 g 1 02/17/20 25 Active lidocaine (LIDODERM) 5 % patchIndications: Osteoarthritis of lumbar spine, unspecified spinal osteoarthritis complication status,Chronic low back pain, unspecified back pain laterality, unspecified whether sciatica present,Chronic knee pain, unspecified laterality Apply 1 patch topically 1 (one) time each day if needed for moderate pain or severe pain. Apply to painful area 12 hours per day, remove for 12 hours. 30 each 2 02/17/20 25 Active traMADoL (ULTRAM) 50 mg tabletIndications :Pain Take 1 tablet (50 mg total) by mouth 1 (one) time each day if needed for severe pain. Max Daily Amount: 50 mg 28 tablet 02/17/20 25 Active melatonin 3 mg tablet TAKE 1 TABLET BY MOUTH DAILY AT BEDTIME NEEDED FOR INSOMNIA 90 tablet 1 02/25/20 25 Active Myrbetriq 50 mg 24 hr tablet Take 1 tablet (50 mg total) by mouth 1 (one) time each day. 90 tablet 3 03/01/20 25 Active sertraline (ZOLOFT) 25 mg tablet TAKE 1 TABLET(25 MG) BY MOUTH 1 TIME EACH DAY 90 tablet 1 04/14/20 25 Active sertraline (ZOLOFT) 25 mg tablet Take 1 tablet (25 mg total) by mouth 1 (one) time each day. 90 tablet 1 10/08/19 25 025 Discontinued Active Problems Problem Noted Date Diagnosed Date Abnormal kidney function 02/16/2025 Diverticulosis 01/07/2025 Chronic obstructive pulmonary disease 01/07/2025 Spinal stenosis, lumbar region with neurogenic [...] He rx Ultram. Her L/S MRI 01/25/25 [facility] shows significant multilevel degenerative changes, scoliosis, including [...] to need for general anesthesia, risk of DC, nerve root damage or spinal fluid leak, [...] pelvic fract ures with disruption of pelvic united keetoowah 12/02/2023 Trochanteric bursitis of right hip 12/02/2023 [...] pelvic and sacral fracture, was seen at [facility]. She is currently in physical therapy at [facility], had 4 visits so far for her right hip pain. Sadly she lost her of 57 years on 04/23/2023, but feels she is doing well and staying somewhat active, is ambulating with a cane. She has a good support system with her 3 sons/lxoulvtf-fl-gnx's and grandson. Ms. Talley had pelvic x-rays [...] like to be referred to orthopedics at [place]. I will call her with results once available. If no significant findings on x-ray, we may order MRI of lumbar spine to rule out nerve root compression. She will call with any concerns or questions. Interstitial lung disease 06/27/2023 Overview (02/20/2024): Last Assessment & Plan: CT scan shows no progression of any interstitial disease or cystic disease of the lungs and pulmonary nodule that is 3 mm has not progressed either. I did go over pulmonary nodules in general again and how their size, shape, and guide changer time affect her level of suspicion for [...] some lightheadedness. Depression 04/23/2023 Deep venous thrombosis 02/28/2023 Closed fracture of sacrum with routine [...] Type Department Care Team Description 03/23/2025 Telephone [facility] [address] [facility] [address] [place] [address] Antonio Dumont MA 03/11/2025 Results Follow-Up [address] [phone] Nidia Mckeon MD 03/03/2025 9:00 AM EDT - 03/03/2025 11:59 PM EDT Hospital Encounter Radiology Department - [address] [phone] Abnormal kidney function Discharge Disposition: Home or Self Care 03/01/2025 8:30 AM EDT Office Visit Urogynecology - [address] [phone] Manasa Hagan MD Nocturia (Primary Dx); Recurrent UTI; Urinary frequency; Urinary urgency; Genitourinary syndrome of menopause; History of midurethral sling procedure; Prolapse of anterior vaginal wall 02/16/2025 7:30 AM EDT Office Visit Adult Medicine [address] [phone] Nidia Mckeon MD Osteoarthritis of lumbar spine, unspecified spinal osteoarthritis complication status (Primary Dx); Chronic low back pain, unspecified back pain laterality, unspecified whether sciatica present; Abnormal kidney function; Prediabetes; Chronic knee pain, unspecified laterality; Need for prophylactic vaccination and inoculation against influenza; Essential (primary) hypertension; Pain 02/15/2025 Results Follow-Up Adult Medicine [address] [phone] Nidia Mckeon MD 02/09/2025 Results Follow-Up [facility] [address] [facility] [address] [place] [address] Sally Johnston NP 02/07/2025 Telephone Adult Medicine [address] [phone] Nidia Mckeon MD 02/04/2025 10:30 AM EDT Office Visit Neurosurgery [place] [facility] [place] [address] [facility] [address] [place] [phone] Debra Dent PA Spinal stenosis, lumbar region with neurogenic claudication (Primary Dx) 01/28/2025 Telephone Adult Medicine [address] [phone] Sherri Perez MA 01/27/2025 Telephone Adult Medicine [address] [phone] Nidia Mckeon MD from Last 3 Months Immunizations Immunization Administration [...] hypothyroidism Mixed hyperlipidemia Osteoporosis Deep venous thrombosis ([facility] V24, [facility] V28 ) 02/28/2023 Open fracture of pubis with routine healing 02/10 Closed fracture of sacrum with routine healing 1 COPD (chronic obstructive pu lmonary disease) ([facility] V24, [facility] V28) Depression Anxiety Family History Medical History [...] care for your loved ones. 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 [...] Orientation Straight 08/20/2024 8: 33 AM EDT Last Filed Vital Signs Vital Sign Reading [...] 8:15 AM EST Office Visit Pulmonology - [address] [place] [address] Rocio Morrell MD [address] [place] [phone] 07/12/2025 8:45 AM EST Office Visit Adult Medicine [address] [phone] Nidia Mckeon MD [address] [place] [address] 01/10/2026 10:00 AM EDT Office Visit Adult Medicine [address] [phone] Nidia Mckeon MD [address] [place] [address] 03/07/2026 8:30 AM EDT Office Visit Urogynecology [address] [place] [address] Manasa Hagan MD [address] [facility] [address] [place] [address] Health Maintenance Due Date Last Done Comments Drug Screen 1940 Naloxone Order 1940 Pain Assessment 1940 COVID-19 Vaccine ( season) 2025 05/29/2022, 02/22/2021, 07/04/2020, Additional history exists RSV Immunization Adult Patients (1 - 1-dose 75+ series) 05/12/2025 Postponed from 2016 (Patient Refused) Falls Risk Assessment 01/07/2026 01/07/2025, 025 Medicare Annual Wellness Visit 01/07/2026 01/07/2025 Social Influencers of Health Screening 01/07/2026 01/07/2025 Hypertension/CHF/CAD Annual BMP Blood Test 02/07/2026 02/07/2025, 01/13/2025, 10/26/2024, Additional history exists Opioid Substance Agreement 02/26/2026 02/25/2026 Cholesterol Screening (Lipid Panel) 10/26/2029 10/26/2024, 08/26/2023 [...] this topic Medical Devices Implanted Type Area Oncology Social Work Device Identifier Shelf Expiration Date Model / Serial / Lot Powder Surgifoam Absorb Gel - Sna - [id number] Implanted:Qty: 1 on 09/13/2024 by Linda Barton MD at [facility] [employer] Right: Spine Lumbar [employer] 07/06/20261977 / NA / [id number] Description:MIXED WITH 10,00 0 UNITS OF THROMBIN Procedures Procedure Name Priority Date/Time Associated Diagnosis Comments US RETROPERITONEAL COMPLETE Routine 03/03/2025 9:47 AM EDT Abnormal kidney function EXTERNAL CARDIAC MRI Routine 03/02/2025 10:13 AM EDT HEMOGLOBIN A1C Routine 02/07/2025 12:11 PM EDT Prediabetes BASIC METABOLIC PANEL Routine 02/07/2025 12:11 PM EDT Chest heaviness SOB (shortness of breath) LIPID PANEL WITH REFLEX TO DIRECT LDL [...] Signed Date: 03/03/2025 18:01 ET Workstation ID: [id number] Transcribed By: Self Edit Transcribed Date: 03/03/2025 [...] Signed Date: 03/03/2025 18:01 ET Workstation ID: [id number] Transcribed By: Self Edit Transcribed Date: 03/03/2025 17:57 ET Nidia Mckeon MD IMG US PROCEDURES Final Res ult * External Cardiac MRI (03/02/2025 10:13 AM EDT) Anatomical Region Laterality Modality Cardiac Diagnost ic Historical Provider [facility] KENA DONALD Final Result * Hemoglobin A1c (02/07/2025 12:11 PM EDT) Pathologist [facility] Hemoglobin A1C 6.0 <6.5 % LAB CHEMISTRY METHOD 02/08/2025 8:51 AM EDT [facility] Mean Bld Glu Estim. 126 mg/dL LAB CHEMISTRY METHOD 02/08/2025 8:51 AM EDT [facility] Blood Venous blood specimen / Unknown Venipuncture / Unknown 02/07/2025 12:11 PM EDT 02/07/2025 12:12 PM EDT Nidia Mckeon MD LAB BLOOD ORDERABLES Final Result [facility] [address] [place] [address], [place] [phone] * (ABNORMAL) Basic metabolic panel (02/07/2025 12:11 PM EDT) Pathologist [facility] Sodium 140 133 - 145 mmol/L LAB CHEMISTRY METHOD 02/07/2025 4:57 PM [facility] Potassium 4.2 3.5 - 5.5 mmol/L LAB CHEMISTRY METHOD 02/07/2025 4:57 PM [facility] Chloride 107 96 - 110 mmol/L LAB CHEMISTRY METHOD 02/07/2025 4:57 PM [facility] CO2 26 21 - 32 mmol/L LAB CHEMISTRY METHOD 02/07/2025 4:57 PM [facility] Anion Gap 7 3 - 11 LAB CHEMISTRY METHOD 02/07/2025 4:57 PM [facility] Glucose 128(H) 70 - 100 mg/dL LAB CHEMISTRY METHOD 02/07/2025 4:57 PM [facility] BUN 17 5 - 25 mg/dL LAB CHEMISTRY METHOD 02/07/2025 4:57 PM [facility] Creatinine 1.04 0.50 - 1.10 mg/dL LAB CHEMISTRY METHOD 02/07/2025 4:57 PM [facility] eGFR 53(L) >=60 mL/min/1. 73m2 LAB CHEMISTRY METHOD 02/07/2025 4:57 PM [facility] Comment:Calculation based on the Chronic Kidney Disease Epidemiology Collaboration (CKD-EPI) equation refit without adjustment for race. BUN/Creatinine Ratio 16.3 LAB CHEMISTRY METHOD 02/07/2025 4:57 PM [facility] Calcium 9.5 8.5 - 10.5 mg/dL LAB CHEMISTRY METHOD 02/07/2025 4:57 PM [facility] Blood Venous blood specimen / Unknown Venipuncture / Unknown 02/07/2025 12:11 PM EDT 02/07/2025 12:12 PM EDT Sally Johnston NP LAB BLOOD ORDERABLES F inal Result [facility] [address] [place] [address], [place] [phone] * Lipid panel with reflex to direct LDL (10/26/2024 8:57 AM EDT) Cholesterol 166 0 - 200 mg/dL LAB CHEMISTRY METHOD 10/26/2024 2:03 PM EDT [facility] Triglycerides 128 0 - 150 mg/dL LAB CHEMISTRY METHOD 10/26/2024 2:03 PM EDT [facility] HDL 62 >=40 mg/dL LAB CHEMISTRY METHOD 10/26/2024 2:03 PM EDT [facility] LDL Calculated 78 0 - 100 mg/dL LAB CHEMISTRY METHOD 10/26/2024 2:03 PM EDT [facility] VLDL Cholesterol Get 25.6 mg/dL LAB CHEMISTRY METHOD 10/26/2024 2:03 PM EDT [facility] Non HDL Chol. (LDL+VLDL) 104 <145 mg/dL LAB CHEMISTRY METHOD 10/26/2024 2:03 PM EDT [facility] Chol/HDL Ratio 2.7 0.0 - 4.4 LAB CHEMISTRY METHOD 10/26/2024 2:03 PM EDT [facility] Blood Venous blood specimen / Unknown Venipuncture / Unknown 10/26/2024 8:57 AM EDT 10/26/2024 8:57 AM EDT us Nidia Mckeon MD LAB BLOOD ORDERABLES Final Result [facility] [address] [place] [address], [place] [phone] * [facility] DEXA AXIAL SKELETON (11/28/2023 9:00 AM EDT) Anatomical Region Laterality Modality Mammography 11/28/2023 8:13 AM EDT Narrative 11/28/2023 9:00 AM EDT [facility] Diagnostic Imaging Department [address] [place] [id number] Patient: BISI TALLEYO.B./Age/Sex: 1940 - 83 - F Unit#: [id number] Location/Status: SPDIMAM/REG CLI [facility]em[facility] Ordering Physician: PRINCE NOLASCO MD [facility] Dexa Axial Skeleton - 11/28/23846 Report Status:Signed [...] probability of hip fracture of 8.0%. Code 36266 Dictating Physician: MARCO LION MD Electronically Signed by: MARCO LION MD Dic Date/Time: 11/28/23 0856 Sign date/Time: 11/28/23 09 Procedure Note Marco Lion MD - 02/25/2024 [facility] Diagnostic Imaging Department [address] [place] [address] Patient: BISI TALLEY /Age/Sex: 1940 - 83 - F Unit#: [id number] Location/Status: [facility] Mnemonic/Ordering Site: [facility] Ordering Physician: PRINCE NOLASCO MD [facility] Dexa Axial Skeleton - 11/28/23846 Report Status:Signed [...] density of the femurs bilaterally is 0.750 gm/wa9nndas is 74% of that of young normals [...] probability of hip fracture of 8.0%. 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 Care Teams Insurance Sales Representative Relationship Specialty Start Date End Date Nidia Mckeon MD [address] [place] [address] PCP - General 04/02/23
== END 2025-04-26 08:13 | disposition home or self-care (01) ==
LOC: HO.HPHYS 07:53
PROVIDERS: PCP Internal Medicine; Visit Provider Physical Medicine & Rehabilitation
DX: M51.26 Other intervertebral disc displacement, lumbar region (principal); M54.16 Radiculopathy, lumbar region; M48.062 Spinal stenosis, lumbar region with neurogenic claudication
CPT/HCPCS: 99213; G2211

== ENCOUNTER → 2025-04-26 07:53 | Outpatient (BNVA) | payer MEDICARE, SELFPAY | PROVIDERS: PCP Internal Medicine; Visit Provider Physical Medicine & Rehabilitation | DX: M54.16 Radiculopathy, lumbar region (principal); M48.062 Spinal stenosis, lumbar region with neurogenic claudication; M51.26 Other intervertebral disc displacement, lumbar region | CPT/HCPCS: 99212 ==